=== PATIENT | male | born 1955 | race Caucasian/White ===

== ENCOUNTER → 2020-07-01 11:30 | Outpatient (BNVA) | payer OTHER, SELFPAY | PROVIDERS: PCP Internal Medicine; Referring Provider Internal Medicine; Visit Provider Surgery Vascular Surgery | DX: I73.9 Peripheral vascular disease, unspecified (principal) | CPT/HCPCS: 99203 ==

== ENCOUNTER 2020-07-12 13:20 | Outpatient (REF) | payer OTHER, SELFPAY ==
--- NOTE | 2020-07-12 | US_ITS ---
EXAMINATION: NONINVASIVE ASSESSMENT OF THE ARTERIES OF BOTH LOWER EXTREMITIES WITH PVR EXAM AND BILATERAL LOWER EXTREMITY DUPLEX CLINICAL INFORMATION: Claudication TECHNIQUE: Ankle pulse volume recordings, ankle pressure measurements and ankle brachial indices were obtained of the lower extremity arterial system bilaterally in addition to duplex Doppler techniques with wave form analysis and measurement of velocities in the common femoral, profunda femoral, superficial femoral, popliteal and tibial arteries. The study was performed only at rest. COMPARISON: Previous exam August 2019 FINDINGS: a) AT REST: RIGHT LE. The right ankle-brachial index is: 1.1 2. Right ankle pressure: normal. 3. Right ankle PVR waveform: normal. 4. Right direct duplex Doppler findings: There is calcified plaque seen in the right common femoral artery and right profunda origin. There is increased peak systolic velocity in the right profunda measuring 350 cm/s. This is similar to previous exam.. * Common femoral artery: 133 cm/s, Diastolic flow reversal: Yes * Superficial femoral artery (proximal, mid, distal): 166, 132, and 172 cm/s, Diastolic flow reversal: Yes * Popliteal artery: 116 cm/s, Diastolic flow reversal: Yes * Posterior tibial artery: 77 cm/s, Diastolic flow reversal: Yes LEFT LE. The left ankle-brachial index is: 0.6 2. Left ankle pressure: Decreased 3. Left ankle PVR waveform: Dampened 4. Left direct duplex Doppler findings: There is calcified plaque seen in the left common femoral artery. * Common femoral artery: 70 cm/s, Diastolic flow reversal: No * Superficial femoral artery (proximal, mid, distal): 78, 78 and 63 cm/s, Diastolic flow reversal: No * Popliteal artery: 58 cm/s, Diastolic flow reversal: No * Posterior tibial artery: Ostiomeatal 45 cm/s, Diastolic flow reversal: No KALINA Reference: * >0.97-1.25 = normal - no significant arterial disease * 0.75-0.96 = mild peripheral arterial disease * 0.5-0.74 = moderate peripheral arterial disease * <0.50 = severe peripheral arterial disease IMPRESSION: Right: Minimal calcified plaque in the right common femoral artery. Elevated peak systolic velocity in the right profunda otherwise normal right lower extremity systolic velocities and waveforms. The right KALINA is normal measuring 1.1. Findings are similar to previous exam. Left: Calcified plaque in the left common femoral artery. There are decreased peak systolic velocities and monophasic waveform throughout the left lower extremity again suggestive of left-sided inflow disease. The left KALINA is 0.56 suggestive of moderate obstructive atherosclerotic disease. Findings are similar to previous exam.
== END 2020-07-12 13:21 | disposition home or self-care (01) ==
LOC: HO.US 13:20
PROVIDERS: PCP Internal Medicine; Visit Provider Surgery Vascular Surgery
DX: I70.213 Atherosclerosis of native arteries of extremities with intermittent claudication, bilateral legs (principal)
CPT/HCPCS: 93923; 93925

== ENCOUNTER 2020-07-21 07:36 | Outpatient (REF) | payer OTHER, SELFPAY ==
--- NOTE | 2020-07-21 07:39 | CT_ITS ---
EXAMINATION: CT CHEST SCREENING CLINICAL INFORMATION: Lung cancer screening COMPARISON: Previous chest CT scans most recent July 2019 TECHNIQUE: Multidetector volumetric CT imaging of the chest is performed without contrast using low dose technique. Additional 2D coronal and sagittal reformatted images and axial 3D maximum intensity projection (MIP) images are generated on the CT workstation. This CT examination was performed using dose optimization techniques as appropriate, variously including the following: *Automated exposure control *Adjustment of mA and/or kV according to patient size (this includes techniques or standardized protocols for targeted exams where dose is matched to indication/reason for exam; i.e. extremities or head) *Use of iterative reconstruction technique DLP: 53 mGy-cm FINDINGS: LUNGS: There is evidence of mild emphysema. There is a small 2 mm question calcified left lower lobe nodule axial image 367 series 6 that is stable. There is minimal scarring or chronic subsegmental atelectasis in the anterior segment of the right upper lobe and inferior segment of the lingula that is stable. The lungs are otherwise clear. No endobronchial or endotracheal lesion is seen. MEDIASTINUM: Mild coronary artery calcification. The mediastinum is otherwise normal. PLEURA: There is no pleural effusion. No pleural mass or thickening. AXILLA: No lymphadenopathy. UPPER ABDOMEN: Unremarkable OSSEOUS STRUCTURES: Unremarkable. CT/CT lung screening IMPRESSION: Mild emphysema. Stable small left lower lobe pulmonary nodule or micronodule. Mild coronary artery calcification. ASSESSMENT: Lung-RADS category 2: Benign RECOMMENDATION: Annual low-dose chest CT follow-up recommended.
== END 2020-07-21 07:37 | disposition home or self-care (01) ==
LOC: HO.CT 07:36
PROVIDERS: PCP Internal Medicine; Visit Provider Surgery
DX: Z12.2 Encounter for screening for malignant neoplasm of respiratory organs (principal); Z87.891 Personal history of nicotine dependence
CPT/HCPCS: 71250

== ENCOUNTER → 2020-07-22 09:14 | Outpatient (BNVA) | payer OTHER, SELFPAY | PROVIDERS: PCP Internal Medicine; Visit Provider Surgery Vascular Surgery | DX: I73.9 Peripheral vascular disease, unspecified (principal) | CPT/HCPCS: 99212 ==

== ENCOUNTER 2020-07-28 07:22 | Day surgery (SDC) | payer OTHER, SELFPAY ==
[2020-07-28] VITALS (10 sets, daily range): BP systolic 122–140; BP diastolic 63–74; PULSE 67–82; RESP 17–18; TEMP 36.9; O2SAT 94–98; BMI 22.3
[2020-07-28 08:18] LABS: MANUAL DIFF FLAG NO
[2020-07-28 08:20] LABS: Basophils Absolute Auto 0.1 X10*3/uL (0.0-0.2); Basophils Percent Auto 0.9 % (0-2); Eosinophils Absolute Auto 0.2 X10*3/uL (0.0-0.4); Eosinophils Percent Auto 1.6 % (0-4); Hematocrit 32.9 % (42-52); Hemoglobin 10.9 g/dl (14.0-18.0); Imm Gran Abs Auto 0.04 X10*3/uL (0.00-0.03); Imm Gran Pct Auto 0.3 % (0.0-0.4); Lymphocytes Absolute Auto 2.5 X10*3/uL (1.2-4.9); Lymphocytes Percent Auto 20.2 % (20-40); Mean Corpuscular HGB Conc 33.1 g/dl (31.0-36.0); Mean Corpuscular Hemoglobin 31.2 pg (27.0-33.0); Mean Corpuscular Volume 94.3 fL (80-98); Mean Platelet Volume 9.2 fL (9.4-12.4); Monocytes Absolute Auto 1.2 X10*3/uL (0.1-1.2); Monocytes Percent Auto 10.1 % (2-11); Neutrophils Absolute Auto 8.2 X10*3/uL (2.0-8.3); Neutrophils Percent Auto 66.9 % (45-73); Platelet Count 312 X10*3/uL (160-400); Red Blood Count 3.49 X10*6/uL (4.60-5.80); Red Cell Distribution Width 14.3 % (11.0-16.0); White Blood Count 12.2 X10*3/uL (4.8-10.8)
[2020-07-28 08:28] LABS: Prothrombin Time 11.8 SEC (10.8-13.0)
[2020-07-28 08:30] LABS: Partial Thromboplastin Time 37.7 SEC (24.1-38.0)
[2020-07-28 08:43] LABS: Anion Gap 12 (12-20); Blood Urea Nitrogen 18 mg/dL (9-16); Calcium 8.8 mg/dL (8.4-10.2); Carbon Dioxide 28 mmol/L (22-29); Chloride 105 mmol/L (96-108); Estimated Glomerular Filt Rate > 60; Glucose Random 95 mg/dL (60-115); Potassium 4.6 mmol/l (3.3-5.1); Sodium 140 mmol/L (135-145)
[2020-07-28] MEDS: iohexoL 300 MG/ML 50 ML INFUS..BTL 40 ML IV (10:39)
[2020-07-28] MEDS: Lidocaine HCl 1 % 20 ML VIAL 10 ML SUBCUT (10:40)
[2020-07-28] MEDS: Heparin Sodium,Porcine 5,000 UNIT/ML VIAL 10000 UNIT IVPUSH (10:46)
[2020-07-28] MEDS: 0.9 % Sodium Chloride 1,000 ML 100 ML IVCONT (10:50)
--- NOTE | 2020-07-28 11:38 | OP_ITS ---
SURGEON: Ronald Gonzalez MD INDICATIONS: Darrian is a 65-year-old gentleman with severe activity limiting claudication. He is able to ambulate no further than half a block prior to severe pain. He now presents for endovascular intervention. Risks, benefits, and complications were discussed in detail with the patient. The patient understood and consented. PREOPERATIVE DIAGNOSIS: POSTOPERATIVE DIAGNOSIS: PROCEDURE PERFORMED: ESTIMATED BLOOD LOSS: Minimal. COMPLICATIONS: ANESTHESIA: Local with moderate conscious sedation for a total of 33 minutes performed by me. ASSISTANTS: SPECIMENS: None. PREPROCEDURE DIAGNOSIS: Atherosclerosis with activity limiting claudication, left leg. POSTPROCEDURE DIAGNOSIS: Atherosclerosis with activity limiting claudication, left leg. PROCEDURES PERFORMED: 1. Ultrasound-guided right common femoral access. 2. Aortogram with left lower extremity runoff (second order catheter placement). DESCRIPTION OF PROCEDURE: The patient was brought to the angiography suite, prior to which a time-out was called for patient identification and site verification. Bilateral groins were prepped and draped in standard surgical fashion. Under ultrasound guidance, right common femoral was accessed with micropuncture needle, wire, subsequent 4-Emirati sheath. Flush catheter was brought up to the level of the renals. Aortogram was then undertaken, brought down to the iliacs. Iliacs were subsequently imaged and then brought up and over into the left lower extremity where I could only pass it down to the beginning of the external iliac. I was not able to go any further than that. Runoff was then undertaken. Multiple attempts and multiple orthogonal views were taken through the external iliac. It was a total occlusion, unable to traverse this. At this point, procedure was terminated. Catheter, wire, sheath were removed. Direct pressure was held for 10 minutes. The patient tolerated the procedure well, returned to Recovery with stable vitals. INTERPRETATION OF FILMS: 1. Aortogram demonstrated good caliber aorta with calcification and appropriate renals. 2. Right lower extremity demonstrated good flow through the iliac down to the common femoral, appropriate SFA and profunda. 3. Left lower extremity demonstrated good flow through the common iliac. There was a total occlusion of the external iliac. Reconstituted at the femoral head. Some mild calcification at the common femoral. Appropriate profunda femoris. SFA was patent with good 3-vessel runoff. CONCLUSION: 1. Successful diagnostic angiogram. 2. Total occlusion of left external iliac. The patient will require a femoral to femoral bypass. He will follow up with me and we will schedule electively. DRAINS: None. MD ADAMARIS Gill/FAUZIA / [id number]
== END 2020-07-28 15:20 | disposition home or self-care (01) ==
PROVIDERS: PCP Internal Medicine; Visit Provider Surgery Vascular Surgery
DX: I70.212 Atherosclerosis of native arteries of extremities with intermittent claudication, left leg (principal); Z86.73 Personal history of transient ischemic attack (TIA), and cerebral infarction without residual deficits; Z87.891 Personal history of nicotine dependence; E78.5 Hyperlipidemia, unspecified
CPT/HCPCS: 36245; 36246; 36415; 75630; 75710; 76942; 80048; 85025; 85610; 85730; 99152; 99153; C1760; C1769; C1887; J2250; J3010; Q9967

== ENCOUNTER → 2020-08-24 11:26 | Outpatient (BNVA) | payer OTHER, SELFPAY | PROVIDERS: PCP Internal Medicine; Referring Provider Internal Medicine; Visit Provider Surgery Vascular Surgery | DX: I73.9 Peripheral vascular disease, unspecified (principal); I74.5 Embolism and thrombosis of iliac artery | CPT/HCPCS: 99212 ==

== ENCOUNTER → 2020-08-25 13:05 | Outpatient (BNVA) | payer OTHER, SELFPAY | PROVIDERS: PCP Internal Medicine; Referring Provider Internal Medicine; Visit Provider Internal Medicine Cardiovascular Disease | DX: Z76.89 Persons encountering health services in other specified circumstances (principal) ==

== ENCOUNTER → 2020-08-27 07:58 | Outpatient (REF) | payer OTHER, SELFPAY ==
--- NOTE | 2020-08-27 | NM_ITS ---
Myocardial perfusion study Indication: Preoperative cardiovascular risk stratification prior to major vascular surgery to evaluate for myocardial ischemia Technique: The patient was brought in for a Lexiscan perfusion study on 08/27/2020. Patient performed low-level exercise and was injected 0.4 mg of Lexiscan intravenously. Within a minute of injection, 25 mCi of sestamibi was given intravenously. Images were obtained using the SPECT gamma camera interlaced with the gating device. Images were obtained in supine position. Resting perfusion study was performed on 08/30/2020. Patient was administered 25 mCi of sestamibi intravenously at rest. Images were then obtained in supine position. Images obtained with and without CT attenuation. Total DLP 59 mGy-cm. Images were processed with the software and compared side to side in short axis, horizontal long axis and vertical long axis views. Findings: The stress perfusion study showed non attenuated images show mildly to moderately reduced uptake in the entire inferior wall of the LV myocardium. Remainder of the LV myocardium is normally perfused. Attenuation corrected images show mildly reduced uptake in the distal anterior and apical wall of the myocardium. The gated study shows normal LV systolic function with calculated LVEF of 66%. LV cavity is normal size. The gated study shows normal wall thickening and contraction of all segments except small area of basal inferior wall of the LV myocardium.. Resting study shows nontender images show mildly to moderately reduced uptake in the inferior wall of the myocardium. Attenuation corrected images shows no change in perfusion pattern.. Gating at rest reveals normal systolic wall motion with ejection fraction at 61%. The findings are consistent with no clear reversible defect suggestive of ischemia. There is mild hypokinesis of the basal inferior wall but attenuation corrected images normalized.. NM/NM doyle perf SPECT rest & str Impression: 1. Myocardial perfusion imaging study shows possible nontransmural infarct of the basal inferior wall without ischemia. 2. Gated LVEF is 66% 3. Transient ischemic dilatation normal in size EKG is nondiagnostic for ischemia
--- NOTE | 2020-08-27 08:02 | CA_ITS ---
Acquisition Time: 2020-08-27 08:15:45 Total Exercise Time: 00:02:00 Test Indications: Pre-Op Evaluation Medications: ASA ATORVASTATIN CITOSTAZOL TELMISARTAN/HCTZ IBUPROFEN Protocol: LEXISCAN Max HR: 106 BPM 67% of Pred: 156 BPM Max BP: 134/068 mmHG Max Work Load: 1.0 METS Pharmacological stress test using Lexiscan while sitting and kicking his feet. Pt tolerated well, denies any anginal sx. EKG without any arrhythmias, non-diagnostic for ischemia. Nuclear images to follow. Normotensive response to test. Test reviewed with Dr. Beauchamp. Referred By: Carmine Beauchamp Overread By: Aleksandr Gandara
== END ==
LOC: HO.CARD 07:58
PROVIDERS: PCP Internal Medicine; Visit Provider Internal Medicine Cardiovascular Disease
DX: Z01.810 Encounter for preprocedural cardiovascular examination (principal); I73.9 Peripheral vascular disease, unspecified
CPT/HCPCS: 78452; 93017; A9500; J0280; J2785

== ENCOUNTER → 2020-08-30 07:40 | Outpatient (REF) | payer OTHER, SELFPAY ==
--- NOTE | 2020-08-30 07:45 | CA_ITS ---
Transthoracic Echocardiogram Patient (Last, First, Middle): Darrian De Jesus E Gender: Male Date of : 1955 Age: 65 Procedure Date: 08/30/2020 Procedure Type: Transthoracic Echocardiogram Location: OP Height: 180.34 cm Weight: 72.58 kg BSA: 1.92 m2 Heart Rate: bpm BP: 122 / 60 mmHg Fashion Merchandiser: RAFAT Referring MD: Carmine Beauchamp MD Symptoms: I73.9, Z01.810 - preprocedural cardiovascular examination Study Quality: Good ECG Rhythm: Sinus Conclusions: - The left ventricular systolic function is normal. The visually estimated ejection fraction is between 55-60%. - The basal inferior segment is hypokinetic. - There is mild dilatation of the sinuses of Valsalva measuring 4.10 cm and mild dilatation of the ascending aorta measuring 3.60 cm. Findings Left Ventricle Normal left ventricular cavity size. There is mildly increased left ventricular wall thickness. The left ventricular systolic function is normal. The visually estimated ejection fraction is between 55-60%. There is no evidence of regional wall motion abnormalities. E/E prime ratio is <8, consistent with normal filling pressures. Evidence suggests grade I (mild) diastolic dysfunction. Wall Motion Rest Echo Findings The basal inferior segment is hypokinetic. Right Ventricle Normal right ventricular cavity size and systolic function. Atria The left atrium is normal in size. The right atrium is normal in size. Aortic Valve There is a normal trileaflet aortic valve. There is no aortic valve stenosis. There is no aortic valve regurgitation. Mitral Valve The mitral valve appears normal. There is trace mitral valve regurgitation. There is no mitral valve stenosis. Pulmonic Valve The pulmonic valve was not well visualized. Tricuspid Valve Normal tricuspid valve structure. There is mild tricuspid valve regurgitation. The pulmonary artery systolic pressure is normal. Great Vessels There is mild dilatation of the sinuses of Valsalva measuring 4.10 cm and mild dilatation of the ascending aorta measuring 3.60 cm. Venous The inferior vena cava is normal in size and collapses greater than 50% with inspiration. Pericardium/Pleural There is no evidence of pericardial effusion. Prior Study Comparison Changes noted compared to prior study dated: 03/28/2018. Slight increase in aortic size. Wall motion seems similar to prior on image review. Measurements 2D Linear Measurements IVSd: 1.14 0.6-0.9/0.6-1.0 cm LVIDd: 4.15 3.9-5.3/4.2-5.9 cm LVIDd Index: 2.16 2.4-3.2/2.2-3.1 cm/m2 LVIDs: 2.77 2.0-3.6 cm LVPWd: 1.16 0.7-1.1 cm Ao Root: 4.10 2.1-3.5 cm LA Diam: 3.40 2.7-3.8/3.0-4.0 cm LAIDs Index: 1.77 1.5-2.3 cm/m2 LV Mass: 204.74 67-162/88-224 g LV Mass Index: 106.63 43-95/49-115 g/m2 LVOT Diam: 2.40 3.0+(-)1.3 cm 2D Systolic Function EF 4C: 47.50 >55% EF 2C: 55.80 >55% EF BiP: 52.20 >55% Mitral Valve MV Pk E: 0.44 MV PK A: 0.90 MV Decel Time: 327.00 E/A: 0.50 E'Lateral: 8.61 E'Medial: 5.80 E/E' Med: 7.50 E/E' Lat: 5.10 PHT: 96.00 MVA PHT: 2.29 Decel [place]: 1.33 Aortic Valve AoV Pk Kike: 1.19 AoV Mn Kike: 0.83 AoV VTI: 0.27 AoV Pk Grad: 6.00 Aov Mn Grad: 3.00 PAMELA Cont.VTI: 3.50 LVOT LVOT Pk Kike: 1.08 LVOT Mn Kike: 0.64 LVOT VTI: 0.21 LVOT Pk Grad: 5.00 LVOT Mn Grad: 2.00 LVOT Diam: 2.40 LVOT Area: 4.52 Diastolic Function MV Pk E: 0.44 MV Pk A: 0.90 E/A: 0.50 E'Medial: 5.80 E/E' Med: 7.50 E' Laterial: 8.61 E/E' Lat: 5.10 Tricuspid Valve TR Pk Kike: 2.23 TR Pk Grad: 20.00 RA Press: 3.00 RVSP: 23.00 Great Vessels Aorta Ao Root-2D: 4.10 2.0-3.7 cm Sinus of Valsalva: 4.10 2.0-3.5 cm Ao Asc: 3.60 2.1-3.4 cm Pulmonary Valve PV Pk Kike: 0.73 Peak PV Grad: 2.00 Updated in Other Vendor System with Status of Final Donald Stoll MD electronically signed on 08/30/2020 10:59:18 AM with status of Final
== END ==
LOC: HO.CARD 07:40
PROVIDERS: Visit Provider Internal Medicine Cardiovascular Disease
DX: Z20.810 Contact with and (suspected) exposure to anthrax (principal); I73.9 Peripheral vascular disease, unspecified; E78.5 Hyperlipidemia, unspecified
CPT/HCPCS: 93306; 99202

== ENCOUNTER → 2020-09-01 12:23 | Outpatient (BNVA) | payer OTHER, SELFPAY | PROVIDERS: PCP Internal Medicine; Referring Provider Internal Medicine; Visit Provider Internal Medicine Cardiovascular Disease | DX: Z76.89 Persons encountering health services in other specified circumstances (principal) ==

== ENCOUNTER 2020-09-06 06:16 | Inpatient (IN) | payer MEDICAID, SELFPAY ==
[2020-08-30 09:59] VITALS: BP 143/81; PULSE 76; RESP 20; O2SAT 98; BMI 22.1
[2020-08-30 11:50] LABS: Hematocrit 38.8 % (42-52); Hemoglobin 12.8 g/dl (14.0-18.0); Mean Corpuscular Hemoglobin 30.5 pg (27.0-33.0); Mean Corpuscular Volume 92.6 fL (80-98); Mean Platelet Volume 9.7 fL (9.4-12.4); Platelet Count 321 X10*3/uL (160-400); Red Blood Count 4.19 X10*6/uL (4.60-5.80); Red Cell Distribution Width 14.2 % (11.0-16.0); White Blood Count 17.6 X10*3/uL (4.8-10.8)
[2020-08-30 11:58] LABS: Partial Thromboplastin Time 34.7 SEC (24.1-38.0)
[2020-08-30 12:08] LABS: Anion Gap 16 (12-20); Blood Urea Nitrogen 17 mg/dL (9-16); Carbon Dioxide 25 mmol/L (22-29); Chloride 102 mmol/L (96-108); Creatinine Clr Calc Pharmacy 66.1; Estimated Glomerular Filt Rate > 60; Glucose Random 94 mg/dL (60-115); Potassium 4.3 mmol/l (3.3-5.1); Sodium 139 mmol/L (135-145)
[2020-08-30 12:22] LABS: Calcium 10.6 mg/dL (8.4-10.2)
--- NOTE | 2020-09-02 14:04 | P.CONAN_ITS ---
Documented by User: Melvina Quinones 09/02/20 14:17 HPI - Anesthesia Eval Consult details Narrative: 65yo M for Femoral Femoral Bypass Graft Seen by Dr Wagner in PAT. Cardiology optimized. Low to intermed risk. [facility] Past Medical History Medical History CVA (cerebral vascular accident) (~03/2018) History of arteriography HTN (hypertension) Hyperlipidemia PVD (peripheral vascular disease) Family History Family History Father Cancer Mother CVD (cardiovascular disease) Obese Sister No problems noted. Son No problems noted. Son No problems noted. Surgical History Surgical History Colonoscopy planned (~2009) H/O colonoscopy Social History Social History Are you a primary health care assistant to a significant other at home: No Do you presently have visiting nurse or other home services: No Alcohol intake: never Smoking Status: Former smoker Tobacco Type: Cigarette Cigarettes Per Day: 10 Years Smoked: 30 Smoked in Last 30 Days: No Smoking Quit Date: 2009 Use of substances other than those prescribed or required for medical reasons: Yes Substance Use Type: Marijuana Substance Use Frequency: Occasionally Have you been hit, kicked, punched, or otherwise hurt by someone within the past year? If so, by whom?: No Advance Directives Information Provided: No Recently lost weight without trying: No Meds Allergies Allergy/AdvReac Type Severity Reaction Status Date / Time bee pollen [Bee Stings] Allergy Severe Anaphylaxis Verified 09/02/20 07:00 Home Medications Medication Instructions Recorded Confirmed Type aspirin 81 mg tablet,delayed 81 mg PO DAILY 07/01/20 09/06/20 History release atorvastatin 20 mg tablet 20 mg PO BEDTIME 07/01/20 09/01/20 History cilostazol 100 mg tablet 100 mg PO BID 07/01/20 09/06/20 History ibuprofen 800 mg tablet 800 mg PO TID PRN 07/01/20 09/01/20 History telmisartan 40 1 tab PO BEDTIME 07/01/20 09/01/20 History mg-hydrochlorothiazide 12.5 mg tablet metoprolol succinate 50 mg PO DAILY 09/06/20 09/06/20 History Exam Exam Date and Time: September 02, 2020 1404 Height,Weight and Vital Signs: Height 5 ft 11 in Weight 72.1 kg Last Vital Signs Pulse 76 08/30/20 09:59 Resp 20 08/30/20 09:59 BP 143/81 H 08/30/20 09:59 Pulse Ox 98 08/30/20 09:59 Pertinent Lab Results Pertinent Lab Results: Laboratory Tests 08/30/20 08/30/20 08/30/20 10:57 11:05 11:05 WBC 17.6 H RBC 4.19 L D Hgb 12.8 L Hct 38.8 L MCV 92.6 MCH 30.5 MCHC 33.0 RDW 14.2 Plt Count 321 MPV 9.7 Absolute Nucleated RBC 0.000 Nucleated RBC % (auto) 0.0 PT 12.0 INR 1.0 APTT 34.7 Sodium Potassium Chloride Carbon Dioxide Anion Gap BUN Creatinine Estim Creat Clear Calc Estimated GFR Random Glucose Calcium Blood Type A Negative Antibody Screen NEGATIVE 08/30/20 11:05 WBC RBC Hgb Hct MCV MCH MCHC RDW Plt Count MPV Absolute Nucleated RBC Nucleated RBC % (auto) PT INR APTT Sodium 139 Potassium 4.3 Chloride 102 Carbon Dioxide 25 Anion Gap 16 BUN 17 H Creatinine 1.15 Estim Creat Clear Calc 66.1 Estimated GFR > 60 Random Glucose 94 Calcium 10.6 H D Blood Type Antibody Screen Narrative Narrative: EKG 07/28/20: NSR Lexiscan stress 08/2020: Pt tolerated well, denies any anginal sx. EKG without any arrhythmias, non-diagnostic for ischemia. Nuclear images to follow. Normotensive response to test. MIBI 08/2020: 1. Myocardial perfusion imaging study shows possible nontransmural infarct of the basal inferior wall without ischemia. 2. Gated LVEF is 66% 3. Transient ischemic dilatation normal in size ECHO 08/2020: - The left ventricular systolic function is normal. The visually estimated ejection fraction is between 55-60%. - The basal inferior segment is hypokinetic. - There is mild dilatation of the sinuses of Valsalva measuring 4.10 cm and mild dilatation of the ascending aorta measuring 3.60 cm. Assessment and Plan Assessment Anesthesia Assessment: Chart Reviewed Documented by User: Veto Wagner 09/06/20 07:59 [facility] Past Medical History Medical History CVA (cerebral vascular accident) (~03/2018) History of arteriography HTN (hypertension) Hyperlipidemia PVD (peripheral vascular disease) Family History Family History Father Cancer Mother CVD (cardiovascular disease) Obese Sister No problems noted. Son No problems noted. Son No problems noted. Surgical History Surgical History Colonoscopy planned (~2009) H/O colonoscopy Social History Social History Are you a primary health care assistant to a significant other at home: No Do you presently have visiting nurse or other home services: No Alcohol intake: never Smoking Status: Former smoker Tobacco Type: Cigarette Cigarettes Per Day: 10 Years Smoked: 30 Smoked in Last 30 Days: No Smoking Quit Date: 2009 Use of substances other than those prescribed or required for medical reasons: Yes Substance Use Type: Marijuana Substance Use Frequency: Occasionally Have you been hit, kicked, punched, or otherwise hurt by someone within the past year? If so, by whom?: No Advance Directives Information Provided: No Recently lost weight without trying: No Meds Allergies Allergy/AdvReac Type Severity Reaction Status Date / Time bee pollen [Bee Stings] Allergy Severe Anaphylaxis Verified 09/02/20 07:00 Home Medications Medication Instructions Recorded Confirmed Type aspirin 81 mg tablet,delayed 81 mg PO DAILY 07/01/20 09/06/20 History release atorvastatin 20 mg tablet 20 mg PO BEDTIME 07/01/20 09/01/20 History cilostazol 100 mg tablet 100 mg PO BID 07/01/20 09/06/20 History ibuprofen 800 mg tablet 800 mg PO TID PRN 07/01/20 09/01/20 History telmisartan 40 1 tab PO BEDTIME 07/01/20 09/01/20 History mg-hydrochlorothiazide 12.5 mg tablet metoprolol succinate 50 mg PO DAILY 09/06/20 09/06/20 History Exam Airway Mallampati Class: II TM Dist: >3cm Neck ROM: Full Loose/Missing/Broken Teeth: Yes (patient has 1 upper tooth in back and a few lower teeth. extremely poor dentition) Heart: [id number] Lungs: cta b/l Assessment and Plan Assessment Anesthesia Assessment: Anesthesia Plan Discussed, PAT Visit and Chart Reviewed Final Anesthetic Review NPO: Yes ASA Class: III Final Preanesthetic Review: No Changes in Pt Med Stat, Meds/Allgs Chart Reviewed, Consent Obtained/Reviewed and Anes Risks/Benef Reviewed Patient Risk: Intermediate Procedure Risk: Intermediate Assessment/Block/Sedation in SS: Assess/Block/Sedation-SS Anesthetic Plan Anesthetic Plan: GA Disposition: Standard PACU
[2020-09-06] VITALS (22 sets, daily range): BP systolic 96–167; BP diastolic 43–65; PULSE 65–97; RESP 12–20; TEMP 36.1–37.2; O2SAT 93–99
[2020-09-06] MEDS: ceFAZolin Sodium/Dextrose,Iso 2 GM/50 ML PIGGYBACK IV ×2 (06:47→12:56)
[2020-09-06] MEDS: Lactated Ringers 1,000 ML 100 ML IVCONT (06:47)
[2020-09-06 06:50] LABS: COVID-19 Test Negative (Negative)
[2020-09-06 06:52] LABS: INTERNATIONAL NORM RATIO 1.1 (0.9-1.1); Prothrombin Time 13.4 SEC (10.8-13.0)
[2020-09-06 06:55] LABS: Partial Thromboplastin Time 31.5 SEC (24.1-38.0)
[2020-09-06 07:09] LABS: Anion Gap 17 (12-20); Blood Urea Nitrogen 28 mg/dL (9-16); Calcium 9.3 mg/dL (8.4-10.2); Carbon Dioxide 23 mmol/L (22-29); Chloride 100 mmol/L (96-108); Estimated Glomerular Filt Rate 47; Glucose Random 111 mg/dL (60-115); Potassium 3.9 mmol/l (3.3-5.1); Sodium 136 mmol/L (135-145)
[2020-09-06 07:14] LABS: Hematocrit 35.2 % (42-52); Hemoglobin 11.8 g/dl (14.0-18.0); Mean Corpuscular HGB Conc 33.5 g/dl (31.0-36.0); Mean Corpuscular Hemoglobin 30.4 pg (27.0-33.0); Mean Corpuscular Volume 90.7 fL (80-98); Platelet Count 308 X10*3/uL (160-400); Red Blood Count 3.88 X10*6/uL (4.60-5.80); White Blood Count 15.1 X10*3/uL (4.8-10.8)
[2020-09-06] MEDS: Sodium Chloride 0.45 % 1,000 ML 80 ML IVCONT (12:56)
--- NOTE | 2020-09-06 15:38 | P.HPCC_ITS ---
History of Present Illness Date of Service: 09/06/20 Chief Complaint: Status post fem-fem bypass 65-year-old gentleman with underlying history of hypertension, hyperlipidemia, PVD, CVA in 2018 admitted on 09/06/2020 after an elective fem-fem bypass for left lower extremity claudication. Now being monitored in intensive care unit in the postop period. Review of Systems Constitutional: Constitutional: Denies fatigue, Denies headache(s) and Denies malaise Eyes: Eyes: Denies change in vision and Denies loss of vision ENT: Denies headache(s) Cardiovascular: Cardiovascular: Denies chest pain, Reports claudication and Denies dyspnea Respiratory: Respiratory: Denies dyspnea and Denies wheezing Gastrointestinal: Gastrointestinal: Denies constipation Genitourinary: Genitourinary: Denies dysuria and Denies urinary hesitancy Musculoskeletal: Musculoskeletal: Denies myalgias and Denies muscle cramps Neurologic: Denies headache(s), Denies loss of vision and Denies memory loss Psychiatric: Psychiatric: Denies memory loss Endocrine: Endocrine: Denies fatigue Allergic/Immunologic: Allergic/Immunologic: Denies wheezing PMFSH Past Medical History Medical History CVA (cerebral vascular accident) (~03/2018) History of arteriography HTN (hypertension) Hyperlipidemia PVD (peripheral vascular disease) Family History Family History Father Cancer Mother CVD (cardiovascular disease) Obese Sister No problems noted. Son No problems noted. Son No problems noted. Surgical History Surgical History Colonoscopy planned (~2009) H/O colonoscopy Social History Social History Household Members: Spouse and Children Housing: House Are you a primary clinical care coordinator to a significant other at home: No Do you presently have visiting nurse or other home services: No Alcohol intake: never Smoking Status: Former smoker Tobacco Type: Cigarette Cigarettes Per Day: 10 Years Smoked: 30 Smoked in Last 30 Days: No Smoking Quit Date: 2009 Use of substances other than those prescribed or required for medical reasons: Yes Substance Use Type: Marijuana Substance Use Frequency: Occasionally Have you been hit, kicked, punched, or otherwise hurt by someone within the past year? If so, by whom?: No Do you feel safe in your current relationship?: Yes Is there a partner from a previous relationship who is making you feel unsafe no w?: No Are you made to feel afraid or neglected: No Advance Directives Information Provided: No Do you have thoughts of harming others: None Do you have a plan to hurt others: No Plan Recently lost weight without trying: No Meds Allergies Allergy/AdvReac Type Severity Reaction Status Date / Time bee pollen [Bee Stings] Allergy Severe Anaphylaxis Verified 09/02/20 07:00 Home Medications Medication Instructions Recorded Confirmed Type aspirin 81 mg tablet,delayed 81 mg PO DAILY 07/01/20 09/06/20 History release atorvastatin 20 mg tablet 20 mg PO BEDTIME 07/01/20 09/01/20 History cilostazol 100 mg tablet 100 mg PO BID 07/01/20 09/06/20 History ibuprofen 800 mg tablet 800 mg PO TID PRN 07/01/20 09/01/20 History telmisartan 40 1 tab PO BEDTIME 07/01/20 09/01/20 History mg-hydrochlorothiazide 12.5 mg tablet Physical Exam Vital Signs: Vital Signs: Last Vital Signs Temp 97.9 F 09/06/20 12:00 Pulse 96 09/06/20 15:00 Resp 12 09/06/20 15:00 BP 160/54 H 09/06/20 15:00 Pulse Ox 97 09/06/20 15:00 Body Mass Index 22.1 Const: General: no acute distress, alert and awake Eyes: Sclerae: sclerae normal EOM: EOMs intact bilaterally Neck: Neck: Yes no lymphadenopathy, Yes trachea midline and Yes supple Resp: Effort & Inspection: normal respiratory effort and no respiratory distress Auscultation: clear to auscultation bilaterally Cardio: Rate: regular rate Rhythm: regular rhythm Heart sounds: no gallops, no murmurs and no rubs GI: Palpation (GI): Soft to palpation and Other GI palpation findings present ( Nontender) Auscultation: normal bowel sounds Extrem: General: Yes no pedal edema, No clubbing, No cyanosis and Yes other (Bilateral femoral incision sites with surgical dressing without hematoma) Results Labs CBC and Chem 7: 09/06/20 06:38 09/06/20 06:38 Labs: Laboratory Results - last 24 hr 09/06/20 09/06/20 09/06/20 06:20 06:38 06:38 MCV 90.7 MCH 30.4 MCHC 33.5 RDW 14.0 Plt Count 308 MPV 10.0 Absolute Nucleated RBC 0.000 Nucleated RBC % (auto) 0.0 PT 13.4 H INR 1.1 APTT 31.5 Anion Gap Estim Creat Clear Calc Estimated GFR Random Glucose Calcium COVID-19 (JULISA) Negative COVID-19 Clin Com See Note 09/06/20 06:38 MCV MCH MCHC RDW Plt Count MPV Absolute Nucleated RBC Nucleated RBC % (auto) PT INR APTT Anion Gap 17 Estim Creat Clear Calc 51.0 Estimated GFR 47 Random Glucose 111 Calcium 9.3 D COVID-19 (JULISA) COVID-19 Clin Com Assessment and Plan (1) PAD (peripheral artery disease): Status: Acute Assessment: 65-year-old gentleman status post elective fem-fem bypass being monitored in ICU postop. Plan: Neuro: No acute issues. Cardiac: Status post elective fem-fem bypass on 09/06/2020. Monitored in ICU in the immediate postsurgical.. Vascular surgery service care appreciated. Pulmonary: No acute issues. Renal: No acute issues. Endo: No acute issues. GI: No acute issues. ID: No acute issues Heme/Onc: Monitor hemoglobin with transfusion threshold of 8. Psych: No acute issues. Miscellaneous: No acute issues. Prophylaxis: Per vascular surgery Diet: Regular (2) HTN (hypertension): Status: Acute (3) Hyperlipidemia: Status: Acute
[2020-09-06] MEDS: oxyCODONE HCl Immed Release 5 MG TABLET PO (18:33)
[2020-09-06] MEDS: 0.9 % Sodium Chloride Flush 3 ML SYRINGE IVFLUSH (18:34)
--- NOTE | 2020-09-06 18:53 | PC.NURSE ---
Pt arrived to icu at 1200 from PACU s/p bilat fem bipass graft. At time of arrival neuros at baseline with hx of CVA, left facial droop and numbness to left side of his body including extremities and face. PT alert and oriented x3. Pain 2/10 at the time of arrival. Dressings intact and dry bilaterally. Bilat pedal and posterior tibial pulses equal and palpable at 3+ bilaterally. PT now experiencing 5/10 pain. He was medicated with PRN oxycodone. Dressings have some slight staining bilaterally which was circled and will continue to monitor site. Pedal and posterior tibial pulses remain palpable bilaterally 3+. VSS a-line to left arm reading about 20mg/hg higher than cuff pressure to the right arm. SBP to a-line running about 150 up to 160. Per keep SBP <170.
[2020-09-06] MEDS: Docusate Sodium 100 MG CAPSULE PO (21:38)
[2020-09-06] MEDS: traZODone HCL 25 MG HALFTAB PO (21:38)
[2020-09-06] MEDS: Atorvastatin Calcium 20 MG TABLET PO (21:38)
[2020-09-06] MEDS: Valsartan 80 MG TABLET PO (21:44)
[2020-09-06] MEDS: hydroCHLOROthiazide 12.5 MG TABLET PO (21:45)
--- NOTE | 2020-09-06 22:14 | OP_ITS ---
SURGEON: Ronald Gonzalez MD INDICATIONS: Darrian is a 65-year-old gentleman with history of activity-limiting claudication. He was unable to carry out his daily activities. He had undergone endovascular intervention with a total occlusion of iliac and common femoral on the left side. He now presents for operative intervention of a femoral to femoral bypass. Risks, benefits, and complications were discussed in detail with the patient. The patient understood and consented. PREOPERATIVE DIAGNOSIS: POSTOPERATIVE DIAGNOSIS: PROCEDURE PERFORMED: 1. Femoral to femoral bypass (right to left). 2. Right femoral endarterectomy. 3. Left common femoral endarterectomy. 4. Left SFA endarterectomy. 5. Thrombectomy of left profunda femoris. ESTIMATED BLOOD LOSS: 300 mL. COMPLICATIONS: ANESTHESIA: General. ASSISTANTS: Dr. Figueroa. SPECIMENS: One. PREPROCEDURE DIAGNOSIS: Atherosclerosis with activity-limiting claudication. POSTPROCEDURE DIAGNOSIS: Atherosclerosis with activity-limiting claudication. DESCRIPTION OF PROCEDURE: The patient was brought to the operating room, prior to which a time-out was called for patient identification and site verification. Abdomen and bilateral groins were prepped and draped in standard surgical fashion. First, left femoral cutdown was undertaken in a longitudinal manner from the inguinal ligament down to the common femoral. We were able to identify the common femoral, isolated this with a silastic loop along with the profunda and SFA, which were individually isolated out. We then did a cutdown on the right side in similar fashion and identified the common femoral profunda and SFA, all isolated out with the silastic loops. We created a tunnel from the left to right using an aortic clamp in the subcutaneous tissue and we brought through a piece of umbilical tape to hold position. At this point, 5000 units of systemic heparin was administered. We clamped down on the left side. An arteriotomy was then created. We performed an endarterectomy of the common femoral. We had to go down onto the SFA, and the proximal portion of the SFA on the left side had to be endarterectomized as well. We did a remote endarterectomy of the left profunda femoris. We did not achieve good flow. A #3 Adilson was used, and we were able to clear out some debris and clot and at this point, we achieved excellent flow. We clamped this side down, placed moist gauze. We then turned our attention to the right side. We opened in a similar fashion, we clamped down on the common femoral profunda and SFA. We did an arteriotomy, and the common femoral had significant atherosclerotic disease. This was endarterectomized and sent off as specimen as well. We trimmed a Philipp Propaten 8 x 50 graft, this was trimmed to the appropriate size. We tunneled this through and we brought it over to the right side. Prior to tunneling, it was anastomosed using a Philipp CV6 suture. We flushed through the graft. Several interrupted sutures had to be placed for hemostasis, which were of 6-0 Prolene and 7-0 Prolene tie. We went over to the contralateral side, which was the left side and once this was tunneled too in a similar fashion, we anastomosed this with a Philipp CV6 suture. Once this was all accomplished, prior to closure, it was all flushed through. We obtained an excellent result with hemostasis. The graft had a palpable pulse throughout it and it had good flow through the graft. Once this was all accomplished, adequate hemostasis was achieved with SNOW after 5 minutes, we appreciated no significant bleeding. We then placed Tisseel sealant and then at this point, we reapproximated deep layer with 2-0 Vicryl, superficial layer with 3-0 Vicryl and finally skin with skin clips. Sterile dressing was applied at the end of the case. At the end of the case, sponge, needle and instrument counts were correct. The patient had bilateral palpable DP pulses and was returned to recovery with stable vitals. DRAINS: None. MD ADAMARIS Gill/FAUZIA / [id number] STEVEN
[2020-09-07] VITALS (15 sets, daily range): BP systolic 96–152; BP diastolic 44–66; PULSE 62–78; RESP 13–20; TEMP 36.3–36.7; O2SAT 78–98
[2020-09-07] MEDS: Sodium Chloride 0.45 % 1,000 ML 80 ML IVCONT
[2020-09-07] MEDS: oxyCODONE HCl Immed Release 5 MG TABLET PO ×4 (00:11→20:22)
[2020-09-07] MEDS: Acetaminophen 325 MG TABLET 650 MG PO ×3 (00:12→16:13)
[2020-09-07 05:58] LABS: Basophils Percent Auto 0.2 % (0-2); Eosinophils Percent Auto 0.1 % (0-4); Hematocrit 26.4 % (42-52); Imm Gran Abs Auto 0.07 X10*3/uL (0.00-0.03); Imm Gran Pct Auto 0.4 % (0.0-0.4); Lymphocytes Absolute Auto 2.9 X10*3/uL (1.2-4.9); Lymphocytes Percent Auto 17.2 % (20-40); MANUAL DIFF FLAG SCAN; Mean Corpuscular HGB Conc 34.1 g/dl (31.0-36.0); Mean Corpuscular Hemoglobin 30.6 pg (27.0-33.0); Mean Corpuscular Volume 89.8 fL (80-98); Mean Platelet Volume 10.1 fL (9.4-12.4); Monocytes Absolute Auto 1.6 X10*3/uL (0.1-1.2); Monocytes Percent Auto 9.7 % (2-11); Neutrophils Absolute Auto 12.2 X10*3/uL (2.0-8.3); Neutrophils Percent Auto 72.4 % (45-73); Platelet Count 243 X10*3/uL (160-400); Red Blood Count 2.94 X10*6/uL (4.60-5.80); Red Cell Distribution Width 13.8 % (11.0-16.0); SCAN SMEAR FLAG 1; White Blood Count 16.8 X10*3/uL (4.8-10.8)
[2020-09-07 06:03] LABS: INTERNATIONAL NORM RATIO 1.1 (0.9-1.1); Prothrombin Time 13.1 SEC (10.8-13.0)
[2020-09-07 06:12] LABS: Albumin Level 3.6 g/dL (3.5-5.0)
[2020-09-07 07:24] LABS: SLIDE REVIEW VERIFIED
[2020-09-07] MEDS: Docusate Sodium 100 MG CAPSULE PO (07:59)
[2020-09-07] MEDS: 0.9 % Sodium Chloride Flush 3 ML SYRINGE IVFLUSH ×4 (07:59→20:23)
[2020-09-07] MEDS: Aspirin Enteric Coated 81 MG TABLET.DR PO (07:59)
--- NOTE | 2020-09-07 08:37 | HO.POSTANES ---
Post Anesthesia Evaluation Post Anesthesia Evaluation Vital Signs: Vital Signs Temp Pulse Resp BP Pulse Ox 09/07/20 07:59 71 15 152/52 H 94 09/07/20 07:00 73 15 139/48 L 96 09/07/20 06:00 70 16 122/58 L 97 09/07/20 05:00 72 16 09/07/20 04:00 97.4 F 68 16 112/48 L 96 09/07/20 03:00 62 16 125/47 L 96 09/07/20 02:00 66 16 118/45 L 96 09/07/20 00:54 65 16 106/44 L 94 09/07/20 00:00 97.6 F 66 16 141/53 H 97 09/06/20 23:00 68 16 111/55 L 95 09/06/20 22:00 65 15 128/49 L 93 09/06/20 21:00 73 18 124/51 L 93 Anesthesia: General Endotracheal-GETA (with A-line for monitoring of beat to beat variability) Mental Status: Awake Pain Control: Satisfactory Nausea/Vomiting: None Hydration: Adequate Anesthesia-Related Issues: No Anes. Related Issues
[2020-09-07 09:49] LABS: Anion Gap 12 (12-20); Blood Urea Nitrogen 23 mg/dL (9-16); Calcium 8.1 mg/dL (8.4-10.2); Carbon Dioxide 26 mmol/L (22-29); Chloride 102 mmol/L (96-108); Creatinine Clr Calc Pharmacy 71.7; Estimated Glomerular Filt Rate > 60; Glucose Random 96 mg/dL (60-115); Potassium 3.2 mmol/l (3.3-5.1); Sodium 137 mmol/L (135-145)
--- NOTE | 2020-09-07 09:51 | MHC.CM.PN ---
Met with pt in ICU. Will be transferred to [facility] [place]. Very pleasant and oriented man. Feels well. Recovering from txkfqaj-ict-bal bypass. CM assessment completed. Lives with and son. Does not use any medical equipment. 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 HCP Ramiro chandra [facility]- [phone]. Plans d/c tomorrow without services.
[2020-09-07] MEDS: Morphine Sulfate 2 MG/ML CARTRIDGE IVPUSH (12:16)
--- NOTE | 2020-09-07 13:18 | P.PNVS_ITS ---
Subjective Subjective Date of Service: 09/07/20 Patient reports: no new complaints and feels better Interval history: Postop day 1 status post fem-fem bypass. No issues overnight. Pain well controlled. He was transferred up to floor. Hemodynamically stable. States feet feel significantly better. Physical Exam Vital Signs: Vital Signs: Last Vital Signs Temp 98.1 F 09/07/20 12:00 Pulse 74 09/07/20 12:00 Resp 16 09/07/20 12:16 BP 120/63 09/07/20 12:00 Pulse Ox 96 09/07/20 12:00 Body Mass Index 22.1 Const: General: cooperative, healthy appearing and no acute distress Orientation/consciousness: oriented to person, oriented to place and oriented to time HENMT: Head: Yes normal to inspection Neck: Carotids: no bruits Chest: Chest palpation & inspection: normal inspection of the chest Resp: Effort & Inspection: normal respiratory effort and able to speak in complete sentences Auscultation: clear to auscultation bilaterally Cardio: Rate: regular rate Heart sounds: S1 normal heart sound present and S2 normal heart sound present Peripheral pulses: dorsalis pedis present (Bilateral palpable DP pulses) GI: Inspection: Yes normal to inspection Skin: Other: Incision dressings only mild staining. No hematoma appreciated. General skin exam: no rashes or lesions noted Wounds: no wounds Neuro: General: oriented to person, oriented to place, oriented to time and CN's II-XI intact bilaterally Extrem: General: Yes normal to inspection, Yes full ROM and Yes no clubbing, cyanosis or edema Psych: Appearance: grossly normal and well kempt Speech and movement: Normal speech and movement present Affect: normal affect Progress Note: A&P Assessment and plan (1) PAD (peripheral artery disease): Status: Acute Assessment and Plan: Status post fem-fem bypass. Doing extremely well. A-line removal, Lopez removal, advanced to regular diet. Stable for transfer to floor. Thank you for the groover and turner assistance in this patient's care. The patient had an opportunity to ask questions regarding the treatment plan. All questions were answered. Imaging studies, laboratory studies and physical exam results were discussed and reviewed in detail. No major barriers to understanding were identified. The patient expressed understanding and agreement with the above treatment plan. The patient is aware they should contact our office by phone for worsening of the current condition or the appearance of new symptoms. Thank you for allowing me to participate in the vascular care of this patient. If you have any questions or concerns regarding the treatment for the above condition please do not hesitate to contact me. The office telephone contact is [phone]. This note is constructed using voice recognition software. While every effort has been made to ensure accuracy, pharmacy services director errors may have been included. Thank you for allowing me to participate in the care of your patient. Yours sincerely, Ronald Gonzalez MD, FACS, R.P.V.I. Fall Risk Details Current Medications: Current Medications Generic Name Dose Route Start Last Admin Trade Name Freq PRN Reason Stop Dose Admin Acetaminophen 650 mg 09/06/20 10:37 09/07/20 07:58 Acetaminophen 325 Mg Tablet PO 650 mg Q6H PRN Administration Pain, Mild (Pain Scale 1-3) Aspirin 81 mg 09/07/20 09:00 09/07/20 07:59 Aspirin Enteric Coated 81 Mg Tablet. PO 81 mg DAILY DAVID Administration Atorvastatin Calcium 20 mg 09/06/20 21:00 09/06/20 21:38 Atorvastatin Calcium 20 Mg Tablet PO 20 mg BEDTIME DAVID Administration Docusate Sodium 100 mg 09/06/20 21:00 09/07/20 07:59 Docusate Sodium 100 Mg Capsule PO 100 mg BID DAVID Administration Hydrochlorothiazide 12.5 mg 09/06/20 21:45 09/06/20 21:45 Hydrochlorothiazide 12.5 Mg Tablet PO 12.5 mg BEDTIME DAVID Administration Protocol Morphine Sulfate 2 mg 09/06/20 10:37 09/07/20 12:16 Morphine Sulfate 2 Mg/Ml Cartridge IVPUSH 2 mg Q4H PRN Administration Pain, Severe (Pain Scale 7-10) Oxycodone HCl 5 mg 09/06/20 10:37 09/07/20 00:11 Oxycodone Hcl Immed Release 5 Mg Tablet PO 5 mg Q4H PRN Administration Pain, Moderate (Pain Scale 4-6 Sodium Chloride 3 ml 09/06/20 16:00 09/07/20 07:59 0.9 % Sodium Chloride Flush 3 Ml Syringe IVFLUSH 3 ml QSHIFT DAVID Administration Valsartan 80 mg 09/06/20 21:45 09/06/20 21:44 Valsartan 80 Mg Tablet PO 80 mg BEDTIME DAVID Administration Protocol Time Spent With Patient Time: Total time spent is greater than 50% in coordination of care (as documented) at patient's floor/unit and/or counseling patient: Time with patient: 15 - 24 minutes
--- NOTE | 2020-09-07 15:25 | PM.EVENT ---
Event Note Date of Service: 09/07/20 Event Note: Transferred out of the ICU this AM. Chart reviewed. BP on the softer side this afternoon, will hold antihypertensives tonight Check labs tomorrow. Will f/u tomorrow
[2020-09-07] MEDS: Atorvastatin Calcium 20 MG TABLET PO (20:22)
[2020-09-08] VITALS: BP 123/57; PULSE 74; RESP 18; TEMP 36.9; O2SAT 96
[2020-09-08] MEDS: Morphine Sulfate 2 MG/ML CARTRIDGE IVPUSH (00:11)
[2020-09-08 04:00] VITALS: BP 145/68; PULSE 85; RESP 18; TEMP 36.6; O2SAT 95
[2020-09-08] MEDS: oxyCODONE HCl Immed Release 5 MG TABLET PO ×2 (06:36→11:48)
[2020-09-08 07:26] VITALS: BP 132/61; PULSE 79; RESP 18; TEMP 36.3; O2SAT 95
[2020-09-08 08:14] LABS: Hematocrit 29.2 % (42-52); Hemoglobin 9.8 g/dl (14.0-18.0); Mean Corpuscular HGB Conc 33.6 g/dl (31.0-36.0); Mean Corpuscular Hemoglobin 31.1 pg (27.0-33.0); Mean Corpuscular Volume 92.7 fL (80-98); Mean Platelet Volume 10.5 fL (9.4-12.4); Platelet Count 270 X10*3/uL (160-400); Red Blood Count 3.15 X10*6/uL (4.60-5.80); Red Cell Distribution Width 14.2 % (11.0-16.0); White Blood Count 16.9 X10*3/uL (4.8-10.8)
[2020-09-08 08:53] LABS: Anion Gap 12 (12-20); Blood Urea Nitrogen 19 mg/dL (9-16); Calcium 8.1 mg/dL (8.4-10.2); Carbon Dioxide 27 mmol/L (22-29); Chloride 102 mmol/L (96-108); Creatinine Clr Calc Pharmacy 85.5; Estimated Glomerular Filt Rate > 60; Glucose Random 96 mg/dL (60-115); Potassium 4.1 mmol/l (3.3-5.1); Sodium 137 mmol/L (135-145)
[2020-09-08] MEDS: Aspirin Enteric Coated 81 MG TABLET.DR PO (10:10)
[2020-09-08] MEDS: 0.9 % Sodium Chloride Flush 3 ML SYRINGE IVFLUSH (10:11)
--- NOTE | 2020-09-08 10:18 | MHC.CM.PN ---
Patient will be discharged home today no services. will provide transport. patient and nurse aware.
--- NOTE | 2020-09-08 10:35 | HO.PM.IMPN ---
Subjective Subjective Date of Service: 09/08/20 Interval History: seen and examined this AM reports he is going home today most likely denies any chest pain / sob ROS General - no fevers or chills Cardiovascular - no chest pain Respiratory - no shortness of breath or cough Abdominal- no abdominal pain, nausea, vomiting, diarrhea Physical Exam Vital Signs: Vital Signs: Last Vital Signs Temp 97.3 F 09/08/20 07:26 Pulse 79 09/08/20 07:26 Resp 18 09/08/20 07:26 BP 132/61 09/08/20 07:26 Pulse Ox 95 09/08/20 07:26 Body Mass Index 22.1 Const: Other: General - no acute distress, appears comfortable Cardiovascular - regular rate and rhythm, S1-S2 Lungs - normal respiratory effort, clear to auscultation bilaterally, no wheezing Abdomen - soft, nontender, no rebound or guarding Extremities - no edema bilaterally Neuro - awake and alert, no focal deficits Objective Data Current Medications Generic Name Dose Route Start Last Admin Trade Name Freq PRN Reason Stop Dose Admin Acetaminophen 650 mg 09/06/20 10:37 09/07/20 16:13 Acetaminophen 325 Mg Tablet PO 650 mg Q6H PRN Administration Pain, Mild (Pain Scale 1-3) Aspirin 81 mg 09/07/20 09:00 09/08/20 10:10 Aspirin Enteric Coated 81 Mg Tablet. PO 81 mg DAILY DAVID Administration Atorvastatin Calcium 20 mg 09/06/20 21:00 09/07/20 20:22 Atorvastatin Calcium 20 Mg Tablet PO 20 mg BEDTIME DAVID Administration Docusate Sodium 100 mg 09/06/20 21:00 09/08/20 10:10 Docusate Sodium 100 Mg Capsule PO Not Given BID DAVID Morphine Sulfate 2 mg 09/06/20 10:37 09/08/20 00:11 Morphine Sulfate 2 Mg/Ml Cartridge IVPUSH 2 mg Q4H PRN Administration Pain, Severe (Pain Scale 7-10) Oxycodone HCl 5 mg 09/06/20 10:37 09/08/20 06:36 Oxycodone Hcl Immed Release 5 Mg Tablet PO 5 mg Q4H PRN Administration Pain, Moderate (Pain Scale 4-6 Sodium Chloride 3 ml 09/06/20 16:00 09/08/20 10:11 0.9 % Sodium Chloride Flush 3 Ml Syringe IVFLUSH 3 ml QSHIFT DAVID Administration Labs CBC & Chem 7: 09/08/20 06:53 09/08/20 06:53 Assessment and Plan (1) PAD (peripheral artery disease): Status: Acute Assessment and Plan: 65 yo M with PAD admitted for elective fem-fem bypass. Medical services consulted for co-management of medical issues. 1. HTN bp improved, resume bp meds tonight if d/c okay to continue 2. PAD mgmt per vascular on asa/statin will follow along if he remains in house
--- NOTE | 2020-09-09 19:50 | DS_ITS ---
ADMITTING DIAGNOSIS: Peripheral vascular disease. DISCHARGE DIAGNOSIS: Peripheral vascular disease. HOSPITAL COURSE: The patient was admitted electively on 09/06/2020, underwent femoral to femoral bypass (right to left with PTFE graft). Did extremely well with the operation. Postoperatively, was transferred to our ICU for overnight observation. Postop day 1, A-line and Lopez were removed and IV fluids were discontinued. He was transferred to the floor subsequently. Once that was done, he was observed for an additional day. Postop day 2, he was ambulating well. Pain was better controlled and he was subsequently discharged. CONDITION UPON DISCHARGE: Stable. DISCHARGE DIET: Regular. DISCHARGE INSTRUCTIONS: Included follow up with me in approximately 2 weeks' time for staple removal. Ambulate as tolerated, may shower within 1 day and to contact us should any bleeding or issues arise. DISCHARGE MEDICATIONS: To resume all home medications including aspirin, atorvastatin, cilostazol, ibuprofen, and telmisartan/hydrochlorothiazide. In addition, Percocet was added by me for pain control. MD ADAMARIS Gill/FAUZIA / [id number]
--- NOTE | 2020-10-22 08:12 | P.DS_ITS ---
DS: Providers Provider Date of Service: 10/22/20 Date of admission: 09/06/20 06:16 Primary care physician: Margarito Goss MD Consults: 09/07/20 08:51 Consult to Hospitalist Routine Consulting Provider: Hospitalist Reason for consultation: Medical comanagement DS: Diagnosis Discharge Diagnosis (1) PAD (peripheral artery disease): Status: Acute DS: Medications Discharge Medications Home Medications: Home Medications Medication Instructions Recorded Confirmed aspirin 81 mg tablet,delayed 81 mg PO DAILY 07/01/20 09/28/20 release atorvastatin 20 mg tablet 20 mg PO BEDTIME 07/01/20 09/28/20 cilostazol 100 mg tablet 100 mg PO BID 07/01/20 09/06/20 ibuprofen 800 mg tablet 800 mg PO TID PRN 07/01/20 09/01/20 telmisartan 40 1 tab PO BEDTIME 07/01/20 09/28/20 mg-hydrochlorothiazide 12.5 mg tablet Previous Rx's Medication Instructions Recorded oxycodone-acetaminophen [Percocet] 1 tab PO Q6H PRN #14 tab 09/08/20 DS: Summary Hospital Course Hospital Course: please see telephone dictation which is in chart Ronald Gonzalez MD SM/MODL / [id number] Time Spent with Patient Time attestation: Total time spent providing and/or coordinating discharge services: Discharge coordination time: Less than 30 minutes Physical Exam Vital Signs: Vital Signs: Last Vital Signs Temp 97.3 F 09/08/20 07:26 Pulse 79 09/08/20 07:26 Resp 18 09/08/20 07:26 BP 132/61 09/08/20 07:26 Pulse Ox 95 09/08/20 07:26 Body Mass Index 22.1 DS: Data Data Completed and Pending Completed studies during hospitalization [Text1]: Pending at discharge 09/06/20 08:46 Surgical [PTH] Routine Procedures Bypass Right Femoral Artery to Left Femoral Artery with Synthetic Substitute, Open Approach (09/06/20) Extirpation of Matter from Left Femoral Artery, Open Approach (09/06/20) Extirpation of Matter from Right Femoral Artery, Open Approach (09/06/20) Supplement Left Femoral Artery with Synthetic Substitute, Percutaneous Approach (09/06/20) Supplement Right Femoral Artery with Synthetic Substitute, Percutaneous Approach (09/06/20) Labs on day of discharge: Laboratory Tests 08/30/20 08/30/20 08/30/20 10:57 11:05 11:05 WBC 17.6 H RBC 4.19 L D Hgb 12.8 L Hct 38.8 L MCV 92.6 MCH 30.5 MCHC 33.0 RDW 14.2 Plt Count 321 MPV 9.7 Immature Gran % (Auto) Neut % (Auto) Lymph % (Auto) [place] % (Auto) Eos % (Auto) Baso % (Auto) Lymph # (Auto) [place] # (Auto) Eos # (Auto) Baso # (Auto) Abs Immat Gran (auto) Absolute Neuts (auto) Absolute Nucleated RBC 0.000 Nucleated RBC % (auto) 0.0 Smear Tech's Comments PT 12.0 INR 1.0 APTT 34.7 Sodium Potassium Chloride Carbon Dioxide Anion Gap BUN Creatinine Estim Creat Clear Calc Estimated GFR Random Glucose Calcium Albumin COVID-19 (JULISA) [facility] Com Blood Type A Negative Antibody Screen NEGATIVE 08/30/20 09/06/20 09/06/20 11:05 06:20 06:38 WBC 15.1 H RBC 3.88 L Hgb 11.8 L Hct 35.2 L MCV 90.7 MCH 30.4 MCHC 33.5 RDW 14.0 Plt Count 308 MPV 10.0 Immature Gran % (Auto) Neut % (Auto) Lymph % (Auto) [place] % (Auto) Eos % (Auto) Baso % (Auto) Lymph # (Auto) [place] # (Auto) Eos # (Auto) Baso # (Auto) Abs Immat Gran (auto) Absolute Neuts (auto) Absolute Nucleated RBC 0.000 Nucleated RBC % (auto) 0.0 Smear Tech's Comments PT INR APTT Sodium 139 Potassium 4.3 Chloride 102 Carbon Dioxide 25 Anion Gap 16 BUN 17 H Creatinine 1.15 Estim Creat Clear Calc 66.1 Estimated GFR > 60 Random Glucose 94 Calcium 10.6 H D Albumin COVID-19 (JULISA) Negative [facility] Com See Note Blood Type Antibody Screen 12/14/20 12/14/20 12/15/20 06:38 06:38 05:23 WBC 16.8 H RBC 2.94 L D Hgb 9.0 L D Hct 26.4 L D MCV 89.8 MCH 30.6 MCHC 34.1 RDW 13.8 Plt Count 243 MPV 10.1 Immature Gran % (Auto) 0.4 Neut % (Auto) 72.4 Lymph % (Auto) 17.2 L [place] % (Auto) 9.7 Eos % (Auto) 0.1 Baso % (Auto) 0.2 Lymph # (Auto) 2.9 [place] # (Auto) 1.6 H Eos # (Auto) 0.0 Baso # (Auto) 0.0 Abs Immat Gran (auto) 0.07 H Absolute Neuts (auto) 12.2 H Absolute Nucleated RBC 0.000 Nucleated RBC % (auto) 0.0 Smear Tech's Comments VERIFIED PT 13.4 H INR 1.1 APTT 31.5 Sodium 136 Potassium 3.9 Chloride 100 Carbon Dioxide 23 Anion Gap 17 BUN 28 H D Creatinine 1.49 H Estim Creat Clear Calc 51.0 Estimated GFR 47 Random Glucose 111 Calcium 9.3 D Albumin COVID-19 (JULISA) [email or web address] Blood Type Antibody Screen 09/07/20 09/07/20 09/07/20 05:23 05:23 08:37 WBC RBC Hgb Hct MCV MCH MCHC RDW Plt Count MPV Immature Gran % (Auto) Neut % (Auto) Lymph % (Auto) [place] % (Auto) Eos % (Auto) Baso % (Auto) Lymph # (Auto) [place] # (Auto) Eos # (Auto) Baso # (Auto) Abs Immat Gran (auto) Absolute Neuts (auto) Absolute Nucleated RBC Nucleated RBC % (auto) Smear Tech's Comments PT 13.1 H INR 1.1 APTT Sodium 137 Potassium 3.2 L Chloride 102 Carbon Dioxide 26 Anion Gap 12 BUN 23 H Creatinine 1.06 Estim Creat Clear Calc 71.7 Estimated GFR > 60 Random Glucose 96 Calcium 8.1 L D Albumin 3.6 COVID-19 (JULISA) [email or web address] Blood Type Antibody Screen 09/08/20 09/08/20 06:53 06:53 WBC 16.9 H RBC 3.15 L Hgb 9.8 L Hct 29.2 L MCV 92.7 MCH 31.1 MCHC 33.6 RDW 14.2 Plt Count 270 MPV 10.5 Immature Gran % (Auto) Neut % (Auto) Lymph % (Auto) [place] % (Auto) Eos % (Auto) Baso % (Auto) Lymph # (Auto) [place] # (Auto) Eos # (Auto) Baso # (Auto) Abs Immat Gran (auto) Absolute Neuts (auto) Absolute Nucleated RBC 0.000 Nucleated RBC % (auto) 0.0 Smear Tech's Comments PT INR APTT Sodium 137 Potassium 4.1 D Chloride 102 Carbon Dioxide 27 Anion Gap 12 BUN 19 H Creatinine 0.89 Estim Creat Clear Calc 85.5 Estimated GFR > 60 Random Glucose 96 Calcium 8.1 L Albumin COVID-19 (JULISA) COVID-19 Clin Com Blood Type Antibody Screen Discharge Plan Discharge Anticipated Discharge Date/Time: 09/08/20 09:28 Patient Disposition: Home, Self-Care Referrals: Margarito Goss MD [Primary Care Provider] - Discharge Medications: New oxycodone-acetaminophen [Percocet] 5-325 mg tablet 1 tab PO Q6H PRN (Reason: pain) Qty: 14 RF: 0 Continued aspirin 81 mg tablet,delayed release (DR/EC) 81 mg PO DAILY RF: 0 atorvastatin 20 mg tablet 20 mg PO BEDTIME RF: 0 ibuprofen 800 mg tablet 800 mg PO TID PRN (Reason: Pain) RF: 0 telmisartan-hydrochlorothiazid 40-12.5 mg tablet 1 tab PO BEDTIME RF: 0 cilostazol 100 mg tablet 100 mg PO BID RF: 0 Discharge Orders: Discharge Order (Routine); Ordered 09/08/20 Ordered By: Ronald Gonzalez Diet: advance to usual diet Activity on Discharge: As tolerated Visit Report Forms: Patient Portal Discharge page Care Plan Goals: ambulate better Health Concerns: PAD Plan of Treatment: post op monitor bypass Discharge Date/Time: 09/08/20 13:46
== END 2020-09-08 13:46 | disposition home or self-care (01) | DRG 181 ==
LOC: HO.SSSA 06:17 → HO.ICU 10:49 → HO.IMC 09-07 09:08
PROVIDERS: Family Medicine; Internal Medicine Cardiovascular Disease; Admitting Provider Surgery Vascular Surgery; PCP Internal Medicine; Visit Provider Internal Medicine Pulmonary Disease
PROC: 04CL0ZZ Extirpation of Matter from Left Femoral Artery, Open Approach (ICD-10-PCS; principal; 2020-09-06 07:30)
DX: I70.213 Atherosclerosis of native arteries of extremities with intermittent claudication, bilateral legs (principal); E78.5 Hyperlipidemia, unspecified; F17.210 Nicotine dependence, cigarettes, uncomplicated; Z71.6 Tobacco abuse counseling; Z86.73 Personal history of transient ischemic attack (TIA), and cerebral infarction without residual deficits; I10 Essential (primary) hypertension; Z20.828 Contact with and (suspected) exposure to other viral communicable diseases; Z79.82 Long term (current) use of aspirin; Z79.1 Long term (current) use of non-steroidal anti-inflammatories (NSAID); Z79.891 Long term (current) use of opiate analgesic; Z79.899 Other long term (current) drug therapy
CPT/HCPCS: 36415; 80048; 82040; 85025; 85027; 85610; 85730; 86850; 86900; 86901; 87635; 88304; 88311; C1757; C1768; J0690; J1100; J2250; J2270; J2370; J2405; J3010

== ENCOUNTER → 2020-09-21 09:27 | Outpatient (BNVA) | payer MEDICAID, SELFPAY | PROVIDERS: PCP Internal Medicine; Referring Provider Internal Medicine; Visit Provider Surgery Vascular Surgery | DX: Z48.812 Encounter for surgical aftercare following surgery on the circulatory system (principal) | CPT/HCPCS: 99212 ==

== ENCOUNTER 2020-09-30 07:36 | Outpatient (REF) | payer MEDICARE, MEDICAID, SELFPAY ==
[2020-09-30 08:33] LABS: Hematocrit 33.2 % (42-52); Hemoglobin 10.7 g/dl (14.0-18.0); Mean Corpuscular HGB Conc 32.2 g/dl (31.0-36.0); Mean Corpuscular Hemoglobin 30.9 pg (27.0-33.0); Mean Platelet Volume 9.8 fL (9.4-12.4); Platelet Count 305 X10*3/uL (160-400); Red Blood Count 3.46 X10*6/uL (4.60-5.80); Red Cell Distribution Width 15.1 % (11.0-16.0); White Blood Count 13.9 X10*3/uL (4.8-10.8)
[2020-09-30 09:06] LABS: Cholesterol 151 mg/dL; HDL Cholesterol 42 mg/dL; LDL Cholesterol Calculated 94 mg/dl; Triglycerides 78 mg/dL
== END 2020-09-30 07:37 | disposition home or self-care (01) ==
LOC: HO.LAB 07:36
PROVIDERS: PCP Internal Medicine; Visit Provider Internal Medicine
DX: I10 Essential (primary) hypertension (principal); E78.5 Hyperlipidemia, unspecified
CPT/HCPCS: 36415; 80061; 85027

== ENCOUNTER 2020-11-15 06:30 | Outpatient (REF) | payer MEDICARE, MEDICAID, SELFPAY ==
[2020-11-15 07:12] LABS: Hematocrit 33.8 % (42-52); Hemoglobin 11.1 g/dl (14.0-18.0); Mean Corpuscular HGB Conc 32.8 g/dl (31.0-36.0); Mean Corpuscular Hemoglobin 30.7 pg (27.0-33.0); Mean Corpuscular Volume 93.4 fL (80-98); Mean Platelet Volume 11.2 fL (9.4-12.4); Platelet Count 247 X10*3/uL (160-400); Red Blood Count 3.62 X10*6/uL (4.60-5.80); Red Cell Distribution Width 14.1 % (11.0-16.0); White Blood Count 11.3 X10*3/uL (4.8-10.8)
== END 2020-11-15 06:31 | disposition home or self-care (01) ==
LOC: HO.LAB 06:30
PROVIDERS: PCP Internal Medicine; Visit Provider Internal Medicine
DX: I73.9 Peripheral vascular disease, unspecified (principal)
CPT/HCPCS: 36415; 85027

== ENCOUNTER 2020-11-22 08:22 | Outpatient (REF) | payer MEDICARE, MEDICAID, SELFPAY ==
--- NOTE | ~2020-11-22 | US_ITS ---
EXAMINATION: COLOR-FLOW DUPLEX IMAGING OF THE BILATERAL LOWER EXTREMITY ARTERIAL SYSTEM. VELOCITY MEASUREMENTS THROUGHOUT THE FEMORAL ARTERIES CLINICAL INFORMATION: This is a 65-year-old male with history of femoral-femoral bypass graft. Peripheral vascular disease. Interventional Radiologist: Palomo Hicks M.D., F.S.I.R., FSathish. Comparison: Comparison is made to a previous study dated 09/18/2019 which suggests a moderate inflow disease in the left lower extremity with ankle-brachial index of 0.58. There was a normal right-sided study. RIGHT FEMORAL RUNOFF VELOCITIES: The right common femoral artery measures 123 cm/s and triphasic. The right profunda femoral artery is 241 cm/s and is triphasic. Right proximal superficial femoral artery measures 105 cm/s and biphasic. Mid superficial femoral artery is 99 cm/s and triphasic. Distal right superficial femoral artery measures 83 cm/s and is biphasic. Right popliteal velocity measures 57 cm/s and is biphasic. The posterior tibial artery velocity measures 62 cm/s and was biphasic. LEFT FEMORAL RUNOFF VELOCITIES: The left common femoral artery measures 217 cm/s and biphasic. The left profunda femoral artery is 147 cm/s and is biphasic. Left proximal superficial femoral artery measures 152 cm/s and triphasic. Mid superficial femoral artery is 98 cm/s and triphasic. Distal left superficial femoral artery measures 92 cm/s and is triphasic. Left popliteal velocity measures 82 cm/s and is biphasic. The posterior tibial artery velocity measures 47 cm/s and was biphasic. There is a right to left femoral-femoral bypass graft: Inflow artery: 177 cm/s and triphasic. Proximal anastomosis: 133 cm/s and triphasic. Proximal bypass graft: 91 cm/s and triphasic. Mid bypass graft: 90 cm/s and biphasic. Distal bypass graft: 106 cm/s and triphasic. Distal anastomosis: 89 cm/s and biphasic. Outflow artery: 135 cm/s and triphasic. US/US arterial duplex LE BI IMPRESSION: 1. There is no hemodynamically significant stenosis seen in the femoral-femoral bypass graft. 2. There is likely hemodynamically significant inflow disease on the left with an elevated left common femoral artery velocity. No hemodynamically significant stenosis is seen within the runoff. 3. There is likely a hemodynamically significant stenosis within the right profunda femoral artery.
== END 2020-11-22 08:23 | disposition home or self-care (01) ==
LOC: HO.US 08:22
PROVIDERS: Visit Provider Surgery Vascular Surgery
DX: I73.9 Peripheral vascular disease, unspecified (principal)
CPT/HCPCS: 93925

== ENCOUNTER → 2020-12-02 08:27 | Outpatient (BNVA) | payer MEDICARE, MEDICAID, SELFPAY | PROVIDERS: PCP Internal Medicine; Visit Provider Internal Medicine Cardiovascular Disease | DX: I25.10 Atherosclerotic heart disease of native coronary artery without angina pectoris (principal); I10 Essential (primary) hypertension; Z79.82 Long term (current) use of aspirin; Z79.899 Other long term (current) drug therapy | CPT/HCPCS: 99212 ==

== ENCOUNTER → 2020-12-07 08:52 | Outpatient (BNVA) | payer MEDICARE, MEDICAID, SELFPAY | PROVIDERS: PCP Internal Medicine; Visit Provider Surgery Vascular Surgery | DX: I73.9 Peripheral vascular disease, unspecified (principal) | CPT/HCPCS: 99212 ==

== ENCOUNTER 2021-03-04 07:40 | Outpatient (REF) | payer MEDICARE, MEDICAID, SELFPAY ==
[2021-03-04 09:16] LABS: Cholesterol 108 mg/dL; HDL Cholesterol 38 mg/dL; LDL Cholesterol Calculated 58 mg/dl; Triglycerides 62 mg/dL
== END 2021-03-04 07:41 | disposition home or self-care (01) ==
LOC: HO.LAB 07:40
PROVIDERS: PCP Internal Medicine; Visit Provider Internal Medicine Cardiovascular Disease
DX: I25.10 Atherosclerotic heart disease of native coronary artery without angina pectoris (principal); I73.9 Peripheral vascular disease, unspecified
CPT/HCPCS: 36415; 80061

== ENCOUNTER 2021-05-31 08:27 | Outpatient (REF) | payer MEDICARE, MEDICAID, SELFPAY ==
--- NOTE | ~2021-05-31 | US_ITS ---
EXAMINATION: COLOR-FLOW DUPLEX IMAGING OF THE BILATERAL LOWER EXTREMITY ARTERIAL SYSTEM. VELOCITY MEASUREMENTS THROUGHOUT THE FEMORAL ARTERIES WITH ANKLE-BRACHIAL PERIPHERAL ARTERIAL TESTING. Interventional Radiologist: Palomo Hicks M.D., F.S.I.R., F.A.C.R. CLINICAL INFORMATION: This is a 66-year-old male with peripheral vascular disease. RIGHT FEMORAL RUNOFF VELOCITIES: The right common femoral artery measures 196 cm/s and biphasic. The right profunda femoral artery is 232 cm/s and is monophasic. Right proximal superficial femoral artery measures 80 cm/s and triphasic. Mid superficial femoral artery is 105 cm/s and biphasic. Distal right superficial femoral artery measures 113 cm/s and is triphasic. Right popliteal velocity measures 48 cm/s and is triphasic. The posterior tibial artery velocity measures 56 cm/s and was biphasic. Velocities were also obtained in the bypass graft as follows: Inflow artery: 195 cm/s and triphasic. Proximal anastomosis: 194 cm/s and triphasic. Proximal bypass graft: 132 cm/s and triphasic. Mid bypass graft 70 cm/s and biphasic Distal bypass graft 84 cm/s and triphasic. Distal anastomosis: 80 cm/s and triphasic. Outflow artery: 196 cm/s and biphasic. The right brachial index measures 1.00. LEFT FEMORAL RUNOFF VELOCITIES: The left common femoral artery measures 65 cm/s and monophasic. The left profunda femoral artery is 155 cm/s and is triphasic. Left proximal superficial femoral artery measures 204 cm/s and triphasic. Mid superficial femoral artery is 90 cm/s and triphasic. Distal left superficial femoral artery measures 93 cm/s and is biphasic. Left popliteal velocity measures 59 cm/s and is biphasic. The left posterior tibial artery velocity measures 57 cm/s and is biphasic. The left brachial index is 0.90. US/US arterial duplex LE BI IMPRESSION: 1. There is a hemodynamically significant stenosis of the right profunda femoral artery. There are elevated velocities in the right common femoral artery. No hemodynamically significant stenosis is seen in the right lower extremity runoff. The bypass graft appears to be patent. 2. There is likely a hemodynamically significant stenosis of the proximal left superficial femoral artery. There is a decreased ankle-brachial index in the left lower extremity as well.
== END 2021-05-31 08:28 | disposition home or self-care (01) ==
LOC: HO.US 08:27
PROVIDERS: PCP Internal Medicine; Visit Provider Surgery Vascular Surgery
DX: I70.213 Atherosclerosis of native arteries of extremities with intermittent claudication, bilateral legs (principal)
CPT/HCPCS: 93925

== ENCOUNTER → 2021-06-09 08:56 | Outpatient (BNVA) | payer MEDICARE, MEDICAID, SELFPAY | PROVIDERS: PCP Internal Medicine; Visit Provider Surgery Vascular Surgery | DX: I73.9 Peripheral vascular disease, unspecified (principal); I65.23 Occlusion and stenosis of bilateral carotid arteries; I25.10 Atherosclerotic heart disease of native coronary artery without angina pectoris; I10 Essential (primary) hypertension; E78.5 Hyperlipidemia, unspecified; Z91.030 Bee allergy status | CPT/HCPCS: 99212 ==

== ENCOUNTER 2021-08-26 07:05 | Outpatient (REF) | payer MEDICARE, MEDICAID, SELFPAY ==
[2021-08-26 11:38] LABS: Cholesterol 121 mg/dL; Glucose Fasting 114 mg/dL (60-99); HDL Cholesterol 39 mg/dL; LDL Cholesterol Calculated 72 mg/dl; Triglycerides 50 mg/dL
[2021-08-26 11:58] LABS: Prostate Specific Antigen Scr 1.58 ng/mL (<0.05-4.0)
== END 2021-08-26 07:06 | disposition home or self-care (01) ==
LOC: HO.LAB 07:05
PROVIDERS: PCP Internal Medicine; Visit Provider Nurse Practitioner Family
DX: Z00.00 Encounter for general adult medical examination without abnormal findings (principal); Z12.5 Encounter for screening for malignant neoplasm of prostate; E78.00 Pure hypercholesterolemia, unspecified; E78.5 Hyperlipidemia, unspecified; I10 Essential (primary) hypertension
CPT/HCPCS: 36415; 80061; 82947; 84153

== ENCOUNTER 2021-09-29 06:57 | Outpatient (REF) | payer MEDICARE, MEDICAID, SELFPAY ==
[2021-09-29 07:31] LABS: Hematocrit 35.4 % (42.0-52.0); Hemoglobin 11.6 g/dl (14.0-18.0); Mean Corpuscular HGB Conc 32.8 g/dl (31.0-36.0); Mean Corpuscular Hemoglobin 30.4 pg (27.0-33.0); Mean Corpuscular Volume 92.7 fL (80.0-98.0); Mean Platelet Volume 10.1 fL (9.4-12.4); Platelet Count 258 X10*3/uL (160-400); Red Blood Count 3.82 X10*6/uL (4.60-5.80); Red Cell Distribution Width 14.9 % (11.0-16.0); White Blood Count 11.9 X10*3/uL (4.8-10.8)
[2021-09-29 08:01] LABS: Alanine Aminotransferase 15 U/L (0-40); Albumin Level 4.3 g/dL (3.5-5.0); Alkaline Phosphatase 62 U/L (39-117); Anion Gap 9 (12-20); Aspartate Amino Transferase 13 U/L (5-37); Bilirubin Direct 0.2 mg/dL (0.0-0.5); Bilirubin Total 0.4 mg/dL (0.0-1.0); Blood Urea Nitrogen 25 mg/dL (9-16); Calcium 9.6 mg/dL (8.4-10.2); Carbon Dioxide 29 mmol/L (22-29); Chloride 107 mmol/L (96-108); Cholesterol 119 mg/dL; Estimated Glomerular Filt Rate > 60; Glucose Random 117 mg/dL (60-115); HDL Cholesterol 39 mg/dL; LDL Cholesterol Calculated 68 mg/dl; Potassium 4.4 mmol/L (3.3-5.1); Sodium 141 mmol/L (135-145); Total Protein 7.3 g/dL (6.5-8.0); Triglycerides 60 mg/dL
[2021-09-29 08:23] LABS: Appearance Urine CLEAR; Color Urine YELLOW; Glucose Urine UA NEG (NEG); Leukocyte Esterase Urine NEG (NEG); Nitrite Urine NEG (NEG); Urine Blood NEG (NEG); Urine Ketones NEG (NEG); Urine Protein NEG (NEG-TRACE)
== END 2021-09-29 06:58 | disposition home or self-care (01) ==
LOC: HO.LAB 06:57
PROVIDERS: PCP Internal Medicine; Visit Provider Internal Medicine
DX: E78.5 Hyperlipidemia, unspecified (principal); I10 Essential (primary) hypertension; I25.10 Atherosclerotic heart disease of native coronary artery without angina pectoris
CPT/HCPCS: 36415; 80048; 80061; 80076; 81003; 85027

== ENCOUNTER → 2021-12-05 08:22 | Outpatient (BNVA) | payer MEDICARE, MEDICAID, SELFPAY | PROVIDERS: PCP Internal Medicine; Referring Provider Internal Medicine; Visit Provider Internal Medicine Cardiovascular Disease | DX: I25.10 Atherosclerotic heart disease of native coronary artery without angina pectoris (principal); I10 Essential (primary) hypertension | CPT/HCPCS: 93005; 99212 ==

== ENCOUNTER 2022-06-27 07:02 | Outpatient (REF) | payer MEDICARE, MEDICAID, SELFPAY ==
[2022-06-27 07:37] LABS: Hematocrit 35.2 % (42.0-52.0); Hemoglobin 11.6 g/dl (14.0-18.0); Mean Corpuscular Hemoglobin 30.3 pg (27.0-33.0); Mean Corpuscular Volume 91.9 fL (80.0-98.0); Mean Platelet Volume 10.2 fL (9.4-12.4); Platelet Count 259 X10*3/uL (160-400); Red Blood Count 3.83 X10*6/uL (4.60-5.80); Red Cell Distribution Width 14.6 % (11.0-16.0); White Blood Count 11.1 X10*3/uL (4.8-10.8)
[2022-06-27 08:26] LABS: Alanine Aminotransferase 18 U/L (0-40); Albumin Level 4.3 g/dL (3.5-5.0); Alkaline Phosphatase 68 U/L (39-117); Anion Gap 17 (12-20); Aspartate Amino Transferase 17 U/L (5-37); Bilirubin Direct < 0.2 mg/dL (0.0-0.5); Bilirubin Total 0.4 mg/dL (0.0-1.0); Blood Urea Nitrogen 21 mg/dL (9-16); Calcium 9.1 mg/dL (8.4-10.2); Carbon Dioxide 24 mmol/L (22-29); Chloride 103 mmol/L (96-108); Cholesterol 113 mg/dL; Estimated Glomerular Filt Rate > 60; Glucose Random 106 mg/dL (60-115); HDL Cholesterol 35 mg/dL; LDL Cholesterol Calculated 66 mg/dl; Potassium 4.2 mmol/L (3.3-5.1); Sodium 140 mmol/L (135-145); Total Protein 7.3 g/dL (6.5-8.0); Triglycerides 60 mg/dL
[2022-06-27 08:32] LABS: Thyroid Stimulating Hormone 4.31 uIU/mL (0.32-4.0)
== END 2022-06-27 07:03 | disposition home or self-care (01) ==
LOC: HO.LAB 07:02
PROVIDERS: PCP Internal Medicine; Visit Provider Internal Medicine
DX: E78.5 Hyperlipidemia, unspecified (principal); I10 Essential (primary) hypertension
CPT/HCPCS: 36415; 80048; 80061; 80076; 84443; 85027

== ENCOUNTER 2022-06-28 08:49 | Outpatient (REF) | payer MEDICARE, MEDICAID, SELFPAY ==
--- NOTE | ~2022-06-28 | US_ITS ---
EXAMINATION: NONINVASIVE ASSESSMENT OF THE ARTERIES OF BOTH LOWER EXTREMITIES INCLUDING PVR EXAM AND BILATERAL LOWER EXTREMITY DUPLEX CLINICAL INFORMATION: Peripheral vascular disease, unspecified. Technologist reports she notes the patient has a femoral-femoral bypass, right to left COMPARISON: Ultrasound 05/31/2021 TECHNIQUE: Ankle pulse volume recordings, ankle pressure measurements and ankle brachial indices were obtained of the lower extremity arterial system bilaterally in addition to duplex Doppler techniques with wave form analysis and measurement of velocities in the common femoral, profunda femoral, superficial femoral, popliteal, tibial and peroneal arteries. The study was performed only at rest. FINDINGS: RIGHT LEG 1. Right Ankle-Brachial Index: 1.01 (higher of the DP/PT) >0.97-1.25 = normal - no significant arterial disease 0.75-0.96 = mild peripheral arterial disease 0.5-0.74 = moderate peripheral arterial disease <0.50 = severe peripheral arterial disease <0.30 = critical arterial disease 2. Segmental Pressures (mmHg): Brachial: 134 Ankle: PT 136, DP 121 3. PVR Waveforms: Ankle: Abnormal 4. Direct Duplex: Common femoral artery proximal to femorofemoral bypass graft: 208 cm/s, Multiphasic Within the common femoral artery distal to the femorofemoral bypass graft there is irregular echogenic plaque and peak systolic velocity 79.2 cm/s with a multiphasic waveform. Profunda femoris artery origin: 272 cm/s, monophasic Profunda femoris artery just beyond the origin: 131 cm/s, monophasic Superficial femoral artery (proximal): 90.9 cm/s, Multiphasic Superficial femoral artery (mid): 90.9 cm/s, Multiphasic Superficial femoral artery (distal): 67.6 cm/s, Multiphasic Popliteal artery: 71.9 cm/s, Multiphasic Distal posterior tibial artery: 52.3 cm/s, multiphasic Peroneal artery: 63.6 cm/s, Multiphasic LEFT LE. Left Ankle-Brachial Index: 0.97 (higher of the DP/PT) >0.97-1.25 = normal - no significant arterial disease 0.75-0.96 = mild peripheral arterial disease 0.5-0.74 = moderate peripheral arterial disease <0.50 = severe peripheral arterial disease <0.30 = critical arterial disease 2. Segmental Pressures: Brachial: 127 Ankle: PT 130, DP 128 3. PVR Waveforms: Ankle: Abnormal 4. Direct Duplex: Common femoral artery (distal to femorofemoral bypass) : 101 cm/s, significant aliasing, though likely multiphasic Profunda femoris artery: 148 cm/s, Multiphasic Superficial femoral artery (proximal): 320 cm/s, Multiphasic Superficial femoral artery (mid): 114 cm/s, Multiphasic Superficial femoral artery (distal): 68 cm/s, Multiphasic Proximal Popliteal artery: 49.5 cm/s, Multiphasic Distal popliteal artery: 38.5 cm/s, Multiphasic Peroneal artery: 24.5 cm/s, Multiphasic FEMOROFEMORAL BYPASS GRAFT Inflow: 208 cm/s, multiphasic Anastomosis: 121 cm/s, multiphasic Proximal: 117 cm/s, multiphasic Midportion: 74.5 cm/s, multiphasic Distal: 93.8 cm/s, multiphasic Distal anastomosis: 82.7, multiphasic Outflow: 116 cm/s, multiphasic US/US arterial duplex LE BI IMPRESSION: Right KALINA is 1.01. There is echogenic plaque and decreased velocity within the common femoral artery just beyond the proximal anastomosis of the femorofemoral bypass graft with preserved multiphasic waveform. There is a probable severe stenosis at the origin of the profunda femoris and there is multiphasic flow throughout the remainder of the visualized right lower extremity vessels. The left KALINA is 0.97. There is increased peak systolic velocity within the proximal superficial femoral artery with preservation of multiphasic waveform which may be suggestive of moderate severe stenosis, though there is otherwise multiphasic flow throughout the left lower extremity. Normal multiphasic flow seen throughout the femorofemoral bypass.
== END 2022-06-28 08:50 | disposition home or self-care (01) ==
LOC: HO.US 08:49
PROVIDERS: Visit Provider Surgery Vascular Surgery
DX: I73.9 Peripheral vascular disease, unspecified (principal); I65.23 Occlusion and stenosis of bilateral carotid arteries
CPT/HCPCS: 93880; 93923; 93925

== ENCOUNTER → 2022-07-06 09:11 | Outpatient (BNVA) | payer MEDICARE, MEDICAID, SELFPAY | PROVIDERS: PCP Internal Medicine; Visit Provider Surgery Vascular Surgery | DX: I73.9 Peripheral vascular disease, unspecified (principal); I65.23 Occlusion and stenosis of bilateral carotid arteries | CPT/HCPCS: 99212 ==

== ENCOUNTER → 2022-12-07 08:24 | Outpatient (BNVA) | payer MEDICARE, MEDICAID, SELFPAY | PROVIDERS: PCP Internal Medicine; Referring Provider Internal Medicine; Visit Provider Internal Medicine Cardiovascular Disease | DX: I25.10 Atherosclerotic heart disease of native coronary artery without angina pectoris (principal); I10 Essential (primary) hypertension | CPT/HCPCS: 93005; 99212 ==

== ENCOUNTER 2022-12-12 07:25 | Outpatient (REF) | payer MEDICARE, MEDICAID, SELFPAY ==
[2022-12-12 08:10] LABS: Hematocrit 33.5 % (42.0-52.0); Hemoglobin 11.2 g/dl (14.0-18.0); Mean Corpuscular HGB Conc 33.4 g/dl (31.0-36.0); Mean Corpuscular Hemoglobin 30.4 pg (27.0-33.0); Mean Platelet Volume 10.5 fL (9.4-12.4); Platelet Count 266 X10*3/uL (160-400); Red Blood Count 3.68 X10*6/uL (4.60-5.80); Red Cell Distribution Width 14.4 % (11.0-16.0); White Blood Count 11.3 X10*3/uL (4.8-10.8)
[2022-12-12 08:16] LABS: Appearance Urine Clear; Color Urine Yellow; Glucose Urine UA Negative (Negative); Leukocyte Esterase Urine Negative (Negative); Nitrite Urine Negative (Negative); PH 6.5 (5.0-9.0); Specific Gravity - Urine 1.015 (1.005-1.025); Urine Blood Negative (Negative); Urine Ketones Negative (Negative); Urine Protein Negative (Neg-Trace)
[2022-12-12 08:45] LABS: Alanine Aminotransferase 16 U/L (0-40); Albumin Level 4.1 g/dL (3.5-5.0); Alkaline Phosphatase 62 U/L (39-117); Anion Gap 13 (12-20); Aspartate Amino Transferase 19 U/L (5-37); Bilirubin Direct 0.2 mg/dL (0.0-0.5); Bilirubin Total 0.6 mg/dL (0.0-1.0); Blood Urea Nitrogen 26 mg/dL (9-16); Calcium 9.2 mg/dL (8.4-10.2); Carbon Dioxide 26 mmol/L (22-29); Chloride 106 mmol/L (96-108); Cholesterol 120 mg/dL; Estimated Glomerular Filt Rate 58; Glucose Random 94 mg/dL (60-115); HDL Cholesterol 38 mg/dL; LDL Cholesterol Calculated 71 mg/dl; Potassium 4.6 mmol/L (3.3-5.1); Sodium 140 mmol/L (135-145); Total Protein 6.8 g/dL (6.5-8.0); Triglycerides 55 mg/dL
[2022-12-12 08:59] LABS: Thyroid Stimulating Hormone 2.75 uIU/mL (0.32-4.0)
== END 2022-12-12 07:26 | disposition home or self-care (01) ==
LOC: HO.LAB 07:25
PROVIDERS: PCP Internal Medicine; Visit Provider Internal Medicine
DX: E78.5 Hyperlipidemia, unspecified (principal); I10 Essential (primary) hypertension
CPT/HCPCS: 36415; 80048; 80061; 80076; 81003; 84443; 85027

== ENCOUNTER 2023-06-14 08:08 | Outpatient (AMB) | payer MEDICARE, SELFPAY ==
--- NOTE | 2023-06-14 08:11 | A.OFFPC_ITS ---
Vital Signs 06/14/23 08:12 Height 5 ft 11 in Weight 167 lb BMI 23.3 BP 140/78 H Blood Pressure Location Lt brachial Position Sitting Pulse 77 Pulse Source Pulse Oximeter Pulse Oximetry (%) 97 Oxygen Delivery Method Room Air Intake Visit Reasons: 6mth f/u Intake Note: Need refill on valsartan. Allergies bee pollen [Bee Stings] Allergy (Severe, Verified 06/14/23 08:34) Anaphylaxis Medication List - Last Reconciled 06/14/23 by Margarito Goss MD aspirin 81 mg PO DAILY atorvastatin 80 mg PO DAILY epinephrine (EpiPen 2-Grzegorz) 0.3 mg (0.3 mL) IM Q10M PRN hydrochlorothiazide 12.5 mg PO DAILY rivaroxaban (Xarelto) 2.5 mg PO BID 90 days valsartan 40 mg PO DAILY Tobacco use date assessed: 12/07/22 Fall risk assessment: No Falls in past year Last assessed Fall Risk: 06/14/23 Dental Screening Dental Screen Date: 06/14/23 Did you have a dental visit in the last 12 months?: No Did you have a dental problem in the last 6 months where you did not have access to dental care?: No Was dental information given to patient?: No HPI 6mth f/u HPI Details 68-year-old male presents to the office to discuss his chronic medical conditions. Patient reports he has not been taking valsartan for the past month. Pharmacy did not fill the prescription. He is able to function and do all activities of daily living. Scheduled for an upcoming ultrasound to examine the circulation in the lower extremities. 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 Vision is normal and is able to drive well at night. No urinary incontinence. [facility] Medical History Screening for eye condition Prostate cancer screening CAD (coronary artery disease) History of arteriography HTN (hypertension) PVD (peripheral vascular disease) Hyperlipidemia CVA (cerebral vascular accident) (~03/2018) Surgical History History of njiix-[id number]-[id number] bypass H/O colonoscopy Colonoscopy planned (~2009) Family History Father Cancer Mother CVD (cardiovascular disease) Obese Sister No problems noted. Son No problems noted. Son No problems noted. Social History Household Members: Spouse and Children Housing: House Are you a primary out of school hours care worker to a significant other at home: No Do you presently have visiting nurse or other home services: No Alcohol intake: never Patient Tobacco Use Status: Former Tobacco user Quit Date: 12 years ago Tobacco use type: Cigarette Years Smoked: 30 +/- e-Cigarette/Vaping Use: Never Used Second Hand Smoke Exposure: No Substance Use Type: Marijuana service: No Current occupational status: retired Cognitive needs: No Hearing needs: No Vision needs: Yes (Glasses) Questionnaire PHQ-9 Over the last 2 weeks, how often have you been bothered by any of the following problems? 1. Little interest or pleasure in doing things: not at all 2. Feeling down, depressed, or hopeless: not at all 3. Trouble falling or staying asleep, or sleeping too much: not at all 4. Feeling tired or having little energy: not at all 5. Poor appetite or overeating: not at all 6. Feeling bad about yourself - or that you are a failure or have let yourself or your family down: not at all 7. Trouble concentrating on things, such as reading the newspaper or watching television: not at all 8. Moving or speaking so slowly that other people could have noticed. Or the opposite - being so fidgety or restless that you have been moving around a lot more than usual: not at all 9. Thoughts that you would be better off or of hurting yourself in some way: not at all Total score: 0 Depression Screening Interpretation: Negative Source: Developed by Drs. Julian Robert, Angella Uriarte, Rashel Barahona and colleagues, with an educational shayna from [employer]. Thrive Questionnaire Date Thrive assessed: 12/07/22 AUDIT C Alcohol Use Questionnaire (AUDIT-C) 1. How often do you have a drink containing alcohol?: Never 3. How often do you have six or more drinks on one occasion?: Never Total Score: 0 WELLINGTON-7 AMB Questionnaire WELLINGTON-7 Date WELLINGTON - 7 assessed: 12/07/22 Source: Developed by Drs. Julian Robert, Angella Uriarte, Rashel Barahona and colleagues, with an educational shayna from [employer]. Physical exam (Primary Care) Vital Signs: Last Vital Signs Pulse 77 06/14/23 08:12 BP 140/78 H 06/14/23 08:12 Pulse Ox 97 06/14/23 08:12 Oxygen Delivery Method Room Air 06/14/23 08:12 Care Plan Goal for BP management: Blood pressure is stable. Valsartan has been restarted. BMI result Body Mass Index 23.3 Tobacco/Smoking Status: Tobacco use Status Tobacco use date assessed 12/07/22 06/14/23 08:18 Patient Tobacco Use Status Former Tobacco user 06/14/23 08:18 Tobacco use type Cigarette 06/14/23 08:18 e-Cigarette/Vaping Use Never Used 06/14/23 08:18 PHQ-9: PHQ-9 Score PHQ-9: Total score 0 06/14/23 08:18 Depression Screening Interpretation: Negative Thrive Assessment: Date of Thrive Assessment Date Thrive assessed 12/07/22 06/14/23 08:18 Const General: cooperative and healthy appearing Nutritional Appearance: well nourished Orientation/consciousness: patient oriented x3 Limitations: no limitations HENMT Head: Yes normal to inspection Eyes General: appearance normal, both eyes and all related structures Neck Neck: Yes normal visual inspection Chest Chest palpation & inspection: normal palpation of entire chest wall Resp Effort & Inspection: normal respiratory effort Neuro General: patient oriented x3 Assessment and Plan Assessment & Plan (1) CVA (cerebral vascular accident): Onset Date: ~03/2018 Comment: Left hemiparesis, followed by Dr. Jacskon. total occlusion of the right internal carotid artery, no interventions performed Code(s): I63.9 - Cerebral infarction, unspecified Plan: Condition is stable. Patient is taking an oral anticoagulant. (2) PAD (peripheral artery disease): Comment: 09/06/2020 - femoral to femoral bypass Code(s): I73.9 - Peripheral vascular disease, unspecified Plan: No objective evidence of peripheral arterial disease at the moment. Encouraged him to get the ultrasound down to check the patency of the stents. (3) HTN (hypertension): Code(s): I10 - Essential (primary) hypertension Qualifiers: Hypertension type: essential hypertension Qualified Code(s): I10 - Essential (primary) hypertension Plan: Blood pressure is stable. Continue medications at same dosage. (4) Hyperlipidemia: Code(s): E78.5 - Hyperlipidemia, unspecified Qualifiers: Hyperlipidemia type: familial hypercholesterolemia Qualified Code(s): E78.01 - Familial hypercholesterolemia Plan: Continue medications at same dosage. Blood work has been ordered. Orders: Orders Complete Blood Count no Diff Today E78.5 - Hyperlipidemia, unspecified, I10 - Essential (primary) hypertension, I63.9 - Cerebral infarction, unspecified, I73.9 - Peripheral vascular disease, unspecified Liver Panel Today E78.5 - Hyperlipidemia, unspecified, I10 - Essential (primary) hypertension, I63.9 - Cerebral infarction, unspecified, I73.9 - Peripheral vascular disease, unspecified Basic Metabolic Panel Today E78.5 - Hyperlipidemia, unspecified, I10 - Essential (primary) hypertension, I63.9 - Cerebral infarction, unspecified, I73.9 - Peripheral vascular disease, unspecified Lipid Panel Today E78.5 - Hyperlipidemia, unspecified, I10 - Essential (primary) hypertension, I63.9 - Cerebral infarction, unspecified, I73.9 - Peripheral vascular disease, unspecified Prostate Specific Antigen Scr Today E78.5 - Hyperlipidemia, unspecified, I10 - Essential (primary) hypertension, I63.9 - Cerebral infarction, unspecified, I73.9 - Peripheral vascular disease, unspecified Medications: Refilled valsartan 40 mg PO DAILY 90 tabs 1RF Coding Level of Care Code Est Pt Level 4 (77683) Diagnoses CVA (cerebral vascular accident) I63.9 PAD (peripheral artery disease) I73.9 Essential hypertension I10 Hypertension type: essential hypertension Familial hypercholesterolemia E78.01 Hyperlipidemia type: familial hypercholesterolemia
[2023-06-14 08:12] VITALS: BP 140/78; PULSE 77; O2SAT 97; BMI 23.3
== END 2023-06-14 08:26 | disposition home or self-care (01) ==
PROVIDERS: PCP Internal Medicine; Visit Provider Internal Medicine
DX: I69.354 Hemiplegia and hemiparesis following cerebral infarction affecting left non-dominant side (principal); I73.9 Peripheral vascular disease, unspecified; I10 Essential (primary) hypertension; E78.01 Familial hypercholesterolemia
CPT/HCPCS: 99214

== ENCOUNTER 2023-06-14 08:32 | Outpatient (REF) | payer MEDICARE, MEDICAID, SELFPAY ==
[2023-06-14 09:11] LABS: Hematocrit 35.9 % (42.0-52.0); Hemoglobin 12.1 g/dl (14.0-18.0); Mean Corpuscular HGB Conc 33.7 g/dl (31.0-36.0); Mean Corpuscular Hemoglobin 30.3 pg (27.0-33.0); Mean Platelet Volume 10.3 fL (9.4-12.4); Platelet Count 285 X10*3/uL (160-400); Red Blood Count 3.99 X10*6/uL (4.60-5.80); Red Cell Distribution Width 14.6 % (11.0-16.0); White Blood Count 10.6 X10*3/uL (4.8-10.8)
[2023-06-14 09:52] LABS: Alanine Aminotransferase 16 U/L (0-40); Albumin Level 4.2 g/dL (3.5-5.0); Alkaline Phosphatase 61 U/L (39-117); Anion Gap 14 (12-20); Aspartate Amino Transferase 15 U/L (5-37); Bilirubin Direct 0.2 mg/dL (0.0-0.5); Bilirubin Total 0.4 mg/dL (0.0-1.0); Blood Urea Nitrogen 20 mg/dL (9-16); Carbon Dioxide 24 mmol/L (22-29); Chloride 107 mmol/L (96-108); Cholesterol 118 mg/dL (<200); Estimated Glomerular Filt Rate 58; Glucose Random 113 mg/dL (60-115); HDL Cholesterol 38 mg/dL (>40); LDL Cholesterol Calculated 65 mg/dL (<100); Potassium 4.2 mmol/L (3.3-5.1); Sodium 141 mmol/L (135-145); Total Protein 7.8 g/dL (6.5-8.0); Triglycerides 76 mg/dL (<150)
[2023-06-14 10:14] LABS: Prostate Specific Antigen Scr 1.37 ng/mL (<0.05-4.0)
== END 2023-06-14 08:33 | disposition home or self-care (01) ==
LOC: HO.LAB 08:32
PROVIDERS: PCP Internal Medicine; Visit Provider Internal Medicine
DX: I73.9 Peripheral vascular disease, unspecified (principal); E78.5 Hyperlipidemia, unspecified; I10 Essential (primary) hypertension; Z86.73 Personal history of transient ischemic attack (TIA), and cerebral infarction without residual deficits; Z12.5 Encounter for screening for malignant neoplasm of prostate
CPT/HCPCS: 36415; 80048; 80061; 80076; 84153; 85027

== ENCOUNTER 2023-07-03 09:49 | Outpatient (REF) | payer MEDICARE, MEDICAID, SELFPAY | END 2023-07-03 09:50 | disposition home or self-care (01) | LOC: HO.US 09:49 | PROVIDERS: PCP Internal Medicine; Visit Provider Surgery Vascular Surgery | DX: I65.23 Occlusion and stenosis of bilateral carotid arteries (principal); I73.9 Peripheral vascular disease, unspecified | CPT/HCPCS: 93880; 93925 ==

== ENCOUNTER 2023-08-07 09:48 | Outpatient (AMB) | payer MEDICARE, MEDICAID, SELFPAY ==
--- NOTE | 2023-08-07 09:53 | MHC.OFFVIS ---
Intake Vital Signs 08/07/23 09:56 Height 5 ft 11 in Weight 157 lb BMI 21.9 Intake Visit Reasons: fu US Intake Note: pt here for a 1 year fu bilateral LE arterial US on 07/03/23 wih a hx of fem fem bypass on 09/06/20 Pt says that he is doing ok and has no issues to discuss at he moment. He only gets a little bit of pain when hes on his feet for a long time but he says is expected Allergies bee pollen [Bee Stings] Allergy (Severe, Verified 08/07/23 09:56) Anaphylaxis HPI fu US HPI Details Very pleasant 68-year-old gentleman presents for routine surveillance follow-up regarding fem-fem bypass. He continues to remain quite active. 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 He has had no difficulty. He can walk several blocks with no issues. He is currently being maintained on aspirin and Xarelto. He now presents for routine follow-up. [facility] Medical History Screening for eye condition Prostate cancer screening CAD (coronary artery disease) History of arteriography HTN (hypertension) PVD (peripheral vascular disease) Hyperlipidemia CVA (cerebral vascular accident) (~03/2018) Surgical History History of lumpx-rxiqj-lxxgqlt bypass H/O colonoscopy Colonoscopy planned (~2009) Family History Father Cancer Mother CVD (cardiovascular disease) Obese Sister No problems noted. Son No problems noted. Son No problems noted. Social History Household Members: Spouse and Children Housing: House Are you a primary career education teacher to a significant other at home: No Do you presently have visiting nurse or other home services: No Alcohol intake: never Patient Tobacco Use Status: Former Tobacco user Quit Date: 12 years ago Tobacco use type: Cigarette Years Smoked: 30 +/- e-Cigarette/Vaping Use: Never Used Second Hand Smoke Exposure: No Substance Use Type: Marijuana service: No Current occupational status: retired Cognitive needs: No Hearing needs: No Vision needs: Yes (Glasses) Review of Systems Const All systems reviewed & are unremarkable except as noted in HPI and below Reports no additional complaints ENT Reports Normal hearing present Card Denies chest pain, Denies chest pain at rest, Denies chest pain with activity and Denies pedal edema Resp Denies cough GI Denies abdominal pain Musc Denies abnormal gait, Denies muscle cramps and Denies radiating pain into limb Skin/Breast Denies skin ulcer and Denies wounds Neuro Reports Normal hearing present and Denies abnormal gait Psych Reports no additional complaints Physical Exam Vital Signs: BMI result Body Mass Index 21.9 Const General: cooperative, healthy appearing and comfortable Orientation/consciousness: oriented to person, oriented to place and oriented to time HEENT Head: Yes normal to inspection Neck Neck: Yes normal visual inspection Carotids: no bruits Chest Chest palpation & inspection: normal inspection of the chest Resp Effort & Inspection: normal respiratory effort and able to speak in complete sentences Auscultation: clear to auscultation bilaterally, no crackles, no rales, no rhonchi and no wheezes Cardio Rate: regular rate Rhythm: regular rhythm Heart sounds: S1 normal heart sound present and S2 normal heart sound present Bruits: no carotid bruits Peripheral pulses: Peripheral pulses 2+ throughout GI Inspection: Yes normal to inspection Skin Wounds: no wounds Hair: normal Neuro General: oriented to person, oriented to place and oriented to time Cranial nerves: Yes CN's II-XII intact bilaterally and Yes Normal hearing present Cognition (Neuro): normal cognition Motor exam (neuro): 5/5 motor strength present throughout Extrem Other: venous exam: No significant superficial varicosities or spider telangiectasias, minimal edema General: No clubbing, No cyanosis and No edema Psych Appearance: grossly normal Mental Status: mental status grossly normal Speech and movement: Normal speech and movement present Results Reviewed Results Reviewed: Noninvasive arterial testing dated 07/03/2023 demonstrates KALINA on the right of 0.99 and on the left of 0.86 with no issues with his right to left femoral to femoral bypass. Carotid testing dated 07/03/2023 demonstrates known right-sided occlusion with left-sided 0-49% stenosis. Written report and images of both studies were reviewed. Assessment & Plan Assessment & Plan (1) PAD (peripheral artery disease): Comment: 09/06/2020 - femoral to femoral bypass Code(s): I73.9 - Peripheral vascular disease, unspecified Plan: In short patient has stable claudication. I did review the pathophysiology of peripheral vascular disease with the patient. In addition we did discuss routine conservative measures including a healthy diet and the importance of exercise and ambulation. We did discuss risk factor modification. The patient will continue to to follow-up with surveillance follow-up in approximately 1 year. Thank you for allowing us to participate in this patient's care. If there are any questions or concerns please do not hesitate to contact us. (2) Bilateral carotid artery stenosis: Code(s): I65.23 - Occlusion and stenosis of bilateral carotid arteries Plan: In short patient has asymptomatic carotid disease. We have reviewed signs and symptoms of a stroke. We also discussed risk factor modification inclusive a healthy diet low in cholesterol. The patient will follow up with us with surveillance ultrasound of the carotids 1 year. Should there be any changes or signs or symptoms of a stroke we will be happy to see them back sooner. Thank you for allowing us to participate in this patient's care. If there are any questions or concerns please do not hesitate to contact us. Orders: Orders US arterial duplex LE BI 364 Days I73.9 - Peripheral vascular disease, unspecified US carotid duplex BI 364 Days I65.23 - Occlusion and stenosis of bilateral carotid arteries Coding Level of Care Code Est Pt Level 4 (00188) Diagnoses PAD (peripheral artery disease) I73.9 Bilateral carotid artery stenosis I65.23
[2023-08-07 09:56] VITALS: BMI 21.9
== END 2023-08-07 10:24 | disposition home or self-care (01) ==
PROVIDERS: PCP Internal Medicine; Visit Provider Surgery Vascular Surgery
DX: I73.9 Peripheral vascular disease, unspecified (principal); I65.23 Occlusion and stenosis of bilateral carotid arteries
CPT/HCPCS: 99214

== ENCOUNTER → 2023-08-07 09:48 | Outpatient (BNVA) | payer MEDICARE, MEDICAID, SELFPAY | PROVIDERS: PCP Internal Medicine; Visit Provider Surgery Vascular Surgery | DX: I73.9 Peripheral vascular disease, unspecified (principal); I65.23 Occlusion and stenosis of bilateral carotid arteries | CPT/HCPCS: 99212 ==

== ENCOUNTER → 2023-10-29 08:07 | Outpatient (REF) | payer MEDICARE, MEDICAID, SELFPAY ==
--- NOTE | 2023-10-29 08:09 | CA_ITS ---
Transthoracic Echocardiogram Patient (Last, First, Middle): Darrian De Jesus E Gender: Male Date of : 1955 Age: 68 Procedure Date: 10/29/2023 Procedure Type: Transthoracic Echocardiogram Location: OP Height: 180.34 cm Weight: 75.75 kg BSA: 1.95 m2 Heart Rate: bpm BP: 110 / 68 mmHg Blind Teacher: Referring MD: Carmine Beauchamp MD Symptoms: I10 - Essential (primary) hypertension Study Quality: Adequate ECG Rhythm: Sinus Conclusions: - The left ventricular systolic function is normal. The calculated ejection fraction is 55% by biplane method. - The basal inferolateral segment is hypokinetic. - No obvious valvular pathology seen on this study. Findings Left Ventricle Normal left ventricular cavity size. There is normal left ventricular wall thickness. The left ventricular systolic function is normal. The calculated ejection fraction is 55% by biplane method. Diastolic function is normal for age. LV peak GLS -17.9%. Wall Motion Rest Echo Findings The basal inferolateral segment is hypokinetic. Right Ventricle Normal right ventricular cavity size and systolic function. Atria Both atria are normal in size. Aortic Valve The aortic valve was not well visualized. There is no aortic valve stenosis. There is no aortic valve regurgitation. Mitral Valve The mitral valve appears normal. There is no mitral valve regurgitation. There is no mitral valve stenosis. Pulmonic Valve The pulmonic valve is likely normal. Tricuspid Valve Normal tricuspid valve structure. There is trace tricuspid valve regurgitation. There is no evidence of pulmonary hypertension. Great Vessels The asc aorta is normal in size. Venous The inferior vena cava is normal in size and collapses greater than 50% with inspiration. Pericardium/Pleural There is no evidence of pericardial effusion. Prior Study Comparison No significant change compared to prior study dated: 08/30/2020. Recommendations, Care & Conclusions No obvious valvular pathology seen on this study. Measurements 2D Linear Measurements IVSd: 0.94 0.6-0.9/0.6-1.0 cm LVIDd: 4.92 3.9-5.3/4.2-5.9 cm LVIDd Index: 2.52 2.4-3.2/2.2-3.1 cm/m2 LVIDs: 2.68 2.0-3.6 cm LVPWd: 1.02 0.7-1.1 cm Ao Root: 3.90 2.1-3.5 cm LA Diam: 3.20 2.7-3.8/3.0-4.0 cm LAIDs Index: 1.64 1.5-2.3 cm/m2 LV Mass: 214.09 67-162/88-224 g LV Mass Index: 109.79 43-95/49-115 g/m2 LVOT Diam: 2.30 3.0+(-)1.3 cm 2D Systolic Function EF 4C: 57.10 >55% EF 2C: 53.50 >55% EF BiP: 55.10 >55% Mitral Valve MV Pk E: 0.48 MV PK A: 0.78 MV Decel Time: 275.00 E/A: 0.60 E'Lateral: 9.03 E'Medial: 8.05 E/E' Med: 6.00 E/E' Lat: 5.40 PHT: 81.00 MVA PHT: 2.72 Decel [place]: 1.76 Aortic Valve AoV Pk Kike: 1.33 AoV Mn Kike: 0.83 AoV VTI: 0.29 AoV Pk Grad: 7.00 Aov Mn Grad: 3.00 PAMELA Cont.VTI: 2.48 LVOT LVOT Pk Kike: 0.87 LVOT Mn Kike: 0.53 LVOT VTI: 0.18 LVOT Pk Grad: 3.00 LVOT Mn Grad: 1.00 LVOT Diam: 2.30 LVOT Area: 4.15 Diastolic Function MV Pk E: 0.48 MV Pk A: 0.78 E/A: 0.60 E'Medial: 8.05 E/E' Med: 6.00 E' Laterial: 9.03 E/E' Lat: 5.40 Right Ventricle TAPSE (mm): 22.10 TVS' Kike: 10.80 Tricuspid Valve TR Pk Kike: 2.27 TR Pk Grad: 21.00 Great Vessels Aorta Ao Root-2D: 3.90 2.0-3.7 cm Ao Asc: 3.40 2.1-3.4 cm Pulmonary Valve PV Pk Kike: 0.87 Peak PV Grad: 3.00 Updated in Other Vendor System with Status of Final Donald Stoll MD electronically signed on 10/29/2023 7:24:55 AM with status of Final
== END ==
LOC: HO.CARD 08:07
PROVIDERS: PCP Internal Medicine; Visit Provider Internal Medicine Cardiovascular Disease
DX: I10 Essential (primary) hypertension (principal)
CPT/HCPCS: 93306; 93356

== ENCOUNTER → 2023-10-29 08:09 | Outpatient (BNV) | payer MEDICARE, MEDICAID, SELFPAY | PROVIDERS: PCP Internal Medicine; Visit Provider Internal Medicine | DX: I10 Essential (primary) hypertension (principal) | CPT/HCPCS: 93306 ==

== ENCOUNTER 2023-12-10 08:35 | Outpatient (AMB) | payer MEDICARE, MEDICAID, SELFPAY ==
--- NOTE | 2023-12-10 08:51 | MHC.OFFVIS ---
Intake Vital Signs 12/10/23 08:52 Height 5 ft 11 in Weight 167 lb 8.821 oz BMI 23.4 BP 130/72 Blood Pressure Location Lt brachial Position Sitting Pulse 69 Intake Visit Reasons: 1 yr s/p echo Intake Note: 1 year follow-up after echo with ekg feeling good Stationary Engineer Required: No Allergies bee pollen [Bee Stings] Allergy (Severe, Verified 08/07/23 09:56) Anaphylaxis Medication List - Last Reconciled 12/10/23 by Carmine Beauchamp MD aspirin 81 mg PO DAILY atorvastatin 80 mg PO DAILY epinephrine (EpiPen 2-Grzegorz) 0.3 mg (0.3 mL) IM Q10M PRN hydrochlorothiazide 12.5 mg PO DAILY rivaroxaban (Xarelto) 2.5 mg PO BID valsartan 40 mg PO DAILY HPI HPI Comments History of Present Illness Details Darrian comes for follow-up. He said when he does a lot of stairs he does get some cramping in his left thigh but this usually resolves very quickly. Denies any exertional chest pain or shortness of breath. Maintains activity level. Recent echocardiogram showed normal LV ejection fraction with basal inferolateral wall motion abnormality. Otherwise no symptoms. Denies any other symptoms. Last LDL in May was within normal limits. Tolerating his medications. Blood pressures been well controlled. Denies smoking. [facility] Medical History Screening for eye condition Prostate cancer screening CAD (coronary artery disease) History of arteriography HTN (hypertension) PVD (peripheral vascular disease) Hyperlipidemia CVA (cerebral vascular accident) (~03/2018) Surgical History History of tnfuf-akbdc-nkfitkd bypass H/O colonoscopy Colonoscopy planned (~2009) Family History Father Cancer Mother CVD (cardiovascular disease) Obese Sister No problems noted. Son No problems noted. Son No problems noted. Social History Household Members: Spouse and Children Housing: House Are you a primary urgent care technician to a significant other at home: No Do you presently have visiting nurse or other home services: No Alcohol intake: never Comment: asa feet pink and warm to touch Patient Tobacco Use Status: Former Tobacco user Quit Date: 12 years ago Tobacco use type: Cigarette Years Smoked: 30 +/- e-Cigarette/Vaping Use: Never Used Second Hand Smoke Exposure: No Substance Use Type: Marijuana service: No Current occupational status: retired Cognitive needs: No Hearing needs: No Vision needs: Yes (Glasses) Review of Systems Const Denies chills, Denies fatigue, Denies fever(s), Denies frequent falls, Denies weakness, Denies weight gain and Denies weight loss ENT Denies dizziness Card Denies chest pain, Denies leg edema, Denies lightheadedness, Denies palpitations, Denies dyspnea, Denies dyspnea on exertion, Denies orthopnea and Denies other (loss of consciousness) Resp Denies cough, Denies dyspnea and Denies dyspnea on exertion GI Denies hematochezia and Denies change in stool character Musc Denies abnormal gait, Denies muscle weakness, Denies numbness, Denies radiating pain into limb and Denies tingling Neuro Denies abnormal gait, Denies dizziness, Denies frequent falls, Denies numbness, Denies tingling and Denies weakness Endo Denies fatigue and Denies palpitations Physical Exam Vital Signs: Last Vital Signs Pulse 69 12/10/23 08:52 BP 130/72 12/10/23 08:52 BMI result Body Mass Index 23.4 Const General: cooperative, comfortable, no acute distress, alert and awake Nutritional Appearance: thin Orientation/consciousness: patient oriented x3 Limitations: no limitations Neck Neck: Yes trachea midline, Yes supple and Yes no JVD Chest Chest palpation & inspection: normal inspection of the chest Resp Effort & Inspection: normal respiratory effort Auscultation: no rales, no wheezes and diminished lung sounds Cardio Jugular venous distension: no JVD Palpation: normal PMI Rate: regular rate Rhythm: regular rhythm Heart sounds: S1 normal heart sound present and S2 normal heart sound present Skin General skin exam: no rashes or lesions noted Neuro General: patient oriented x3 and no focal motor deficits Extrem General: Yes no clubbing, cyanosis or edema Psych Appearance: grossly normal Office Procedures EKG Details: EKG shows normal sinus rhythm with normal EKG 66190-[id number], Complete Assessment & Plan Assessment & Plan (1) CAD (coronary artery disease): Code(s): I25.10 - Atherosclerotic heart disease of [place] coronary artery without angina pectoris Plan: CAD with diffuse vascular disease including bilateral carotid disease as well as peripheral vascular disease. Currently without any cardiac symptoms with exertion. He maintains activity level as tolerated. Advised to call me with any new symptoms. At this point time continue aspirin as well as low-dose oral anticoagulation which she is tolerating well. Continue high-intensity statin therapy along with aggressive control blood pressure LDL is well optimized. Encouraged to continue to participate in regular physical activity. (2) HTN (hypertension): Code(s): I10 - Essential (primary) hypertension Qualifiers: Hypertension type: essential hypertension Qualified Code(s): I10 - Essential (primary) hypertension Plan: Hypertension which is currently well optimized on low-dose valsartan hydrochlorothiazide therapy. Continue to monitor blood pressure at home maintain a log. Low-salt diet was discussed. A lot target goal blood pressure less than 130/84. Follow up in the clinic in 1 year's time, sooner p.r.n.. Thank you for allowing me to partake in his care Coding Level of Care Code Est Pt Level 4 (24970) Diagnoses CAD (coronary artery disease) I25.10 Essential hypertension I10 Hypertension type: essential hypertension CPT Codes EKG - CPT: 04815-Nqsfrtgemxlikkizy, Complete ([id number])
[2023-12-10 08:52] VITALS: BP 130/72; PULSE 69; BMI 23.4
== END 2023-12-10 09:08 | disposition home or self-care (01) ==
PROVIDERS: Visit Provider Internal Medicine Cardiovascular Disease
DX: I25.10 Atherosclerotic heart disease of native coronary artery without angina pectoris (principal); I10 Essential (primary) hypertension
CPT/HCPCS: 93010; 99214

== ENCOUNTER → 2023-12-10 08:35 | Outpatient (BNVA) | payer MEDICARE, MEDICAID, SELFPAY | PROVIDERS: Visit Provider Internal Medicine Cardiovascular Disease | DX: I25.10 Atherosclerotic heart disease of native coronary artery without angina pectoris (principal); I10 Essential (primary) hypertension | CPT/HCPCS: 93005; 99212 ==

== ENCOUNTER 2024-04-02 08:21 | Outpatient (AMB) | payer MEDICARE, MEDICAID, SELFPAY ==
--- NOTE | 2024-04-02 08:31 | MHC.PC.OV ---
Vital Signs 04/02/24 08:34 Height 5 ft 11 in Weight 163 lb 2 oz BMI 22.7 BP 110/66 Blood Pressure Location Lt brachial Position Sitting Pulse 61 Pulse Source Pulse Oximeter Pulse Oximetry (%) 97 Oxygen Delivery Method Room Air Intake Visit Reasons: 6 month f/u Intake Note: Patient is here to follow up on CAD, PAD, HTN, HLD. 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 Required: No Manager Document Control: Not Required per policy Accompanied by: Self / Same As Patient Allergies bee pollen [Bee Stings] Allergy (Severe, Verified 04/02/24 08:34) Anaphylaxis Tobacco use date assessed: 04/02/24 Fall risk assessment: No Falls in past year Last assessed Fall Risk: 04/02/24 Dental Screening Dental Screen Date: 04/02/24 Did you have a dental visit in the last 12 months?: No Did you have a dental problem in the last 6 months where you did not have access to dental care?: No Was dental information given to patient?: No HPI 6 month f/u HPI Details 69-year-old male presents to the office to discuss his chronic medical conditions. Patient is at baseline state of health. Able to function and do activities of daily living. The thigh pain, that was bothering him in the previous visit has all subsided. Though he is retired, patient is very active and always doing small jobs. He is able to drive, drive at night. Able to manage his finances independently. No urinary incontinence. No gait abnormalities. [facility] Medical History Screening for eye condition Prostate cancer screening CAD (coronary artery disease) History of arteriography HTN (hypertension) PVD (peripheral vascular disease) Hyperlipidemia CVA (cerebral vascular accident) (~03/2018) Surgical History History of ldffo-lvydm-kyzhdsi bypass H/O colonoscopy Colonoscopy planned (~2009) Family History Father Cancer Mother CVD (cardiovascular disease) Obese Sister No problems noted. Son No problems noted. Son No problems noted. Social History Household Members: Spouse and Children Housing: House Are you a primary overnight caregiver to a significant other at home: No Do you presently have visiting nurse or other home services: No Alcohol intake: never Comment: asa feet pink and warm to touch Patient Tobacco Use Status: Former Tobacco user Tobacco use type: Cigarette Years Smoked: 30 +/- e-Cigarette/Vaping Use: Never Used Second Hand Smoke Exposure: No Substance Use Type: Marijuana service: No Current occupational status: retired Cognitive needs: No Hearing needs: No Vision needs: Yes (Glasses) Questionnaire PHQ-9 Over the last 2 weeks, how often have you been bothered by any of the following problems? 1. Little interest or pleasure in doing things: not at all 2. Feeling down, depressed, or hopeless: not at all 3. Trouble falling or staying asleep, or sleeping too much: not at all 4. Feeling tired or having little energy: not at all 5. Poor appetite or overeating: not at all 6. Feeling bad about yourself - or that you are a failure or have let yourself or your family down: not at all 7. Trouble concentrating on things, such as reading the newspaper or watching television: not at all 8. Moving or speaking so slowly that other people could have noticed. Or the opposite - being so fidgety or restless that you have been moving around a lot more than usual: not at all 9. Thoughts that you would be better off or of hurting yourself in some way: not at all Total score: 0 Depression Screening Interpretation: Negative Depression Screening Done: Yes Source: Developed by Drs. Julian Robert, Angella Uriarte, Rashel Barahona and colleagues, with an educational shayna from [employer] Thrive Questionnaire Date Thrive assessed: 04/02/24 I am a: Patient What is your living situation today?: I have a steady place to live Within the past 12 months, did the food you bought not last and you didn't have the money to get more?: Never true Within the past 12 months, did you worry whether your food would run out before you got money to buy more?: Never true Do you have trouble paying for medicines?: No Do you have trouble getting transportation to medical appointments?: No Do you have trouble paying your heating and electricity bill?: No Do you have trouble taking care of your child, family member or friend?: No Do you have trouble with day-to-day activities such as bathing, preparing meals, shopping, managing finances, etc.?: No Are you currently unemployed and looking for a job?: No Are you interested in more education?: No Currently or been in a relationship where the following occur: No concerns reported THRIVE Score: 0 AUDIT C Alcohol Use Questionnaire (AUDIT-C) 1. How often do you have a drink containing alcohol?: Never Total Score: 0 WELLINGTON-7 AMB Questionnaire WELLINGTON-7 Date WELLINGTON - 7 assessed: 04/02/24 Feeling nervous, anxious, or on edge: 0 = Not at all Not being able to stop or control worryin = Not at all Worrying too much about different things: 0 = Not at all Trouble relaxin = Not at all Being so restless that it is hard to sit still: 0 = Not at all Becoming easily annoyed or irritable: 0 = Not at all Feeling afraid as if something awful might happen: 0 = Not at all Total [place]-7 score (0-4 normal; 5-9 mild; 10-14 moderate; 15-21 severe): 0 Source: Developed by Drs. Julian Robert, Angella Uriarte, Rashel Barahona and colleagues, with an educational shayna from [employer] Physical exam (Primary Care) Vital Signs: Last Vital Signs Pulse 61 04/02/24 08:34 BP 110/66 04/02/24 08:34 Pulse Ox 97 04/02/24 08:34 Oxygen Delivery Method Room Air 04/02/24 08:34 Care Plan Goal for BP management: Blood pressure is in range. Continue current medications. BMI result Body Mass Index 22.7 Tobacco/Smoking Status: Tobacco use Status Tobacco use date assessed 04/02/24 04/02/24 08:38 Patient Tobacco Use Status Former Tobacco user 04/02/24 08:38 Tobacco use type Cigarette 04/02/24 08:38 e-Cigarette/Vaping Use Never Used 04/02/24 08:38 PHQ-9: PHQ-9 Score PHQ-9: Total score 0 04/02/24 08:38 Depression Screening Interpretation: Negative Thrive Assessment: Date of Thrive Assessment Date Thrive assessed 04/02/24 04/02/24 08:38 Currently or been in a relationship where the following occur: No concerns reported Advance Care Planning discussion: Exists, not on file Date of discussion: 04/02/24 Who was present: Patient Forms completed: Health Care Proxy Time spent: 1-15 minutes, not on file Actual minutes spent: 5 Const General: cooperative and healthy appearing Nutritional Appearance: well nourished Orientation/consciousness: patient oriented x3 Limitations: no limitations HENMT Head: Yes normal to inspection Eyes General: appearance normal, both eyes and all related structures Neck Neck: Yes normal visual inspection Chest Chest palpation & inspection: normal palpation of entire chest wall Resp Effort & Inspection: normal respiratory effort Neuro General: patient oriented x3 Assessment and Plan Assessment & Plan (1) CVA (cerebral vascular accident): Onset Date: ~03/2018 Comment: Left hemiparesis, followed by Dr. Jackson. total occlusion of the right internal carotid artery, no interventions performed Code(s): I63.9 - Cerebral infarction, unspecified Plan: Condition is stable. Able to function and do all activities of daily living. (2) PAD (peripheral artery disease): Comment: 09/06/2020 - femoral to femoral bypass Code(s): I73.9 - Peripheral vascular disease, unspecified Plan: Condition is stable. Patient is not smoking. Continue current medications. (3) HTN (hypertension): Code(s): I10 - Essential (primary) hypertension Qualifiers: Hypertension type: essential hypertension Qualified Code(s): I10 - Essential (primary) hypertension Plan: Blood pressure is in range. Continue current medications. Counseling on the importance of diet and exercise done. (4) Hyperlipidemia: Code(s): E78.5 - Hyperlipidemia, unspecified Qualifiers: Hyperlipidemia type: familial hypercholesterolemia Qualified Code(s): E78.01 - Familial hypercholesterolemia Plan: Blood work has been ordered. Will call with the results. Coding Level of Care Code Est Pt Level 4 (70740) Complex EM visit Add On G2211 Diagnoses CVA (cerebral vascular accident) I63.9 PAD (peripheral artery disease) I73.9 Essential hypertension I10 Hypertension type: essential hypertension Familial hypercholesterolemia E78.01 Hyperlipidemia type: familial hypercholesterolemia Additional Codes Vital Signs *Quality* - Advance Care Planning discussion: Exists, not on file ([id number]) Vital Signs *Quality* - Time spent: 1-15 minutes, not on file ([id number])
[2024-04-02 08:34] VITALS: BP 110/66; PULSE 61; O2SAT 97; BMI 22.7
== END 2024-04-02 08:49 | disposition home or self-care (01) ==
PROVIDERS: PCP Internal Medicine; Visit Provider Internal Medicine
DX: I73.9 Peripheral vascular disease, unspecified (principal); I69.354 Hemiplegia and hemiparesis following cerebral infarction affecting left non-dominant side; I10 Essential (primary) hypertension; E78.01 Familial hypercholesterolemia; Z00.00 Encounter for general adult medical examination without abnormal findings
CPT/HCPCS: 1124F; 99214; G2211

== ENCOUNTER 2024-04-04 06:30 | Outpatient (REF) | payer MEDICARE, MEDICAID, SELFPAY ==
[2024-04-04 07:05] LABS: Hematocrit 35.5 % (42.0-52.0); Hemoglobin 11.9 g/dl (14.0-18.0); Mean Corpuscular HGB Conc 33.5 g/dl (31.0-36.0); Mean Corpuscular Hemoglobin 30.9 pg (27.0-33.0); Mean Corpuscular Volume 92.2 fL (80.0-98.0); Platelet Count 262 X10*3/uL (160-400); Red Blood Count 3.85 X10*6/uL (4.60-5.80); Red Cell Distribution Width 14.9 % (11.0-16.0); White Blood Count 10.5 X10*3/uL (4.8-10.8)
[2024-04-04 07:31] LABS: Alanine Aminotransferase 17 U/L (0-40); Albumin Level 4.2 g/dL (3.5-5.0); Alkaline Phosphatase 63 U/L (39-117); Anion Gap 12 (12-20); Aspartate Amino Transferase 15 U/L (5-37); Bilirubin Direct 0.2 mg/dL (0.0-0.5); Bilirubin Total 0.4 mg/dL (0.0-1.0); Blood Urea Nitrogen 26 mg/dL (9-16); Calcium 9.8 mg/dL (8.4-10.2); Carbon Dioxide 24 mmol/L (22-29); Chloride 109 mmol/L (96-108); Cholesterol 121 mg/dL (<200); Estimated Glomerular Filt Rate 56; Glucose Random 108 mg/dL (60-115); HDL Cholesterol 34 mg/dL (>40); LDL Cholesterol Calculated 72 mg/dL (<100); Potassium 4.5 mmol/L (3.3-5.1); Sodium 140 mmol/L (135-145); Total Protein 7.5 g/dL (6.5-8.0); Triglycerides 77 mg/dL (<150)
[2024-04-04 07:47] LABS: Thyroid Stimulating Hormone 2.11 uIU/mL (0.32-4.0)
[2024-04-04 08:26] LABS: Appearance Urine Clear; Color Urine Yellow; Glucose Urine UA Negative (Negative); Leukocyte Esterase Urine Negative (Negative); Nitrite Urine Negative (Negative); PH 5.5 (5.0-9.0); Urine Blood Negative (Negative); Urine Ketones Negative (Negative); Urine Protein Negative (Neg-Trace)
== END 2024-04-04 06:31 | disposition home or self-care (01) ==
LOC: HO.LAB 06:30
PROVIDERS: PCP Internal Medicine; Visit Provider Internal Medicine
DX: E78.01 Familial hypercholesterolemia (principal); I10 Essential (primary) hypertension; Z86.73 Personal history of transient ischemic attack (TIA), and cerebral infarction without residual deficits
CPT/HCPCS: 36415; 80048; 80061; 80076; 81003; 84443; 85027

== ENCOUNTER 2024-08-04 10:18 | Outpatient (REF) | payer MEDICARE, MEDICAID, SELFPAY ==
--- NOTE | ~2024-08-04 | US_ITS ---
EXAMINATION: US EXTRACRANIAL CAROTID DUPLEX, BILATERAL CLINICAL INFORMATION: History of carotid occlusion. COMPARISON: 07/03/2023. TECHNIQUE: Real-time ultrasound and Doppler techniques (integrating B-mode 2-D vascular images, Doppler spectral analysis and color-flow Doppler imaging) were utilized to interrogate the extracranial carotid arteries, the vertebral arteries and proximal subclavian arteries bilaterally. The degree of stenosis is determined by criteria similar to NASCET. FINDINGS: Right Side: 1. There is heavily calcified plaque atherosclerotic plaque seen in the bifurcation/proximal ICA region. 2. The common carotid artery PSV proximally is 44 cm/s and distally 38 cm/s. 3. The internal carotid artery remains occluded. 4. The proximal external carotid artery PSV is 250 cm/s. 5. The vertebral artery shows antegrade flow. 6. The subclavian artery waveforms are normal. Left Side: 1. There is moderate atherosclerotic plaque seen in the bifurcation/proximal ICA region. 2. The common carotid artery PSV proximally is 104 cm/s and distally 70 cm/s. 3. The proximal internal carotid artery velocities are 193 cm/s systolic and 60 cm/s diastolic (previously 186/58). 4. The proximal external carotid artery PSV is 128 cm/s. 5. The vertebral artery shows antegrade flow. 6. The subclavian artery waveforms are normal. US/US carotid duplex BI IMPRESSION: 1. RIGHT : Chronic occlusion of the right ICA similar to prior study. 2. LEFT: Velocities in the left proximal ICA are 193, which ordinarily would BE considered a 50-79% stenosis; however, some of this elevated velocity may be due to increased flow secondary to right-sided occlusion. No significant interval change when compared to prior. 3. There is no change in the category severity of disease when compared to the previous study dated 07/03/2023. Electronically signed by: Zac Reagan MD 08/05/2024 12:54 PM [facility] [place]
--- NOTE | ~2024-08-04 | US_ITS ---
EXAMINATION: Noninvasive assessment of the bilateral lower extremities with ARTERIAL DUPLEX and ANKLE BRACHIAL INDICES (ABIs). CLINICAL INFORMATION: Peripheral vascular disease. History of right to left femorofemoral bypass graft TECHNIQUE: Duplex Doppler techniques with waveform analysis and measurement of velocities in the bilateral common femoral, profunda femoris, superficial femoral, popliteal and tibial arteries were performed. Additionally, ankle pulse volume recordings, ankle pressure measurements and ankle brachial indices were obtained of the lower extremity arterial system bilaterally. The study was performed only at rest. COMPARISON: 07/03/2023 FINDINGS: DIRECT DUPLEX DOPPLER FINDINGS: Right to left femorofemoral bypass graft is patent on color Doppler. Right anastomosis: 128 cm/s, biphasic Proximal bypass graft: 109 cm/s, biphasic Mid bypass graft: 61 cm/s, triphasic Distal bypass graft: 61 cm/s, triphasic Distal anastomosis: 83 cm/s, triphasic RIGHT LEG: Common femoral artery: 153, phasicity: Triphasic Profunda femoris artery: 183 cm/s, phasicity: Triphasic Superficial femoral artery (proximal): 110 cm/s, phasicity: Biphasic Superficial femoral artery (mid): 75.2 cm/s, phasicity: Triphasic Superficial femoral artery (distal): 112 cm/s, phasicity: Triphasic. Scattered calcified plaque Popliteal artery: 51.1 cm/s, phasicity: Biphasic. Scattered calcified plaque Posterior tibial artery: 45.4 cm/s, phasicity: Biphasic Peroneal artery: 25.9 cm/s, phasicity: Biphasic Anterior tibial artery: 44.3 cm/s, phasicity: Biphasic Dorsalis pedis artery: 46.5 cm/s, phasicity:Biphasic LEFT LEG: Common femoral artery: 54 cm/s, phasicity: Biphasic Profunda femoris artery: 147 cm/s, phasicity: Basic Superficial femoral artery (proximal): 153 cm/s, phasicity: Triphasic. Calcified plaque at the ostium Superficial femoral artery (mid): 79.9 cm/s, phasicity: Triphasic. Scattered calcified plaque Superficial femoral artery (distal): 124.2 cm/s, phasicity: Triphasic. Scattered calcified plaque Popliteal artery: 70.0 cm/s, phasicity: Triphasic. Scattered calcified plaque Posterior tibial artery: 38.0 cm/s, phasicity: Biphasic Peroneal artery: 32.6 cm/s, phasicity: Biphasic Anterior tibial artery: 54.1 cm/s, phasicity: Biphasic Dorsalis pedis artery: 29.6 cm/s, phasicity: Biphasic ANKLE-BRACHIAL INDEX: Right: 1.01, previously 0.99 Left: 0.91, previously 0.87 ANKLE PRESSURES: Right: PT 141, DP 136 Left: PT 127, DP 19 ANKLE PVR WAVEFORMS: Right: Mildly dampened Left: Mildly dampened US/US arterial duplex BI w/ KALINA IMPRESSION: 1. Patent right to left femorofemoral bypass graft. 2. Scattered calcified plaque in the bilateral lower extremities. No hemodynamically significant stenosis. 3. Normal ankle-brachial indices bilaterally. Electronically signed by: Aamir Dong MD 08/28/2024 09:12 AM [facility]
== END 2024-08-04 10:19 | disposition home or self-care (01) ==
LOC: HO.US 10:18
PROVIDERS: PCP Internal Medicine; Visit Provider Surgery Vascular Surgery
DX: I73.9 Peripheral vascular disease, unspecified (principal); I65.23 Occlusion and stenosis of bilateral carotid arteries
CPT/HCPCS: 93880; 93922; 93925

== ENCOUNTER 2024-08-28 08:45 | Outpatient (AMB) | payer MEDICARE, MEDICAID, SELFPAY ==
[2024-08-28 09:03] VITALS: BP 158/64; BMI 23.9
--- NOTE | 2024-08-28 09:03 | A.OFFVIS_ITS ---
Vital Signs 08/28/24 09:03 08/28/24 09:12 Height 5 ft 11 in Weight 171 lb 8 oz BMI 23.9 BP 158/64 H 144/62 H Blood Pressure Location Lt brachial Rt brachial Position Sitting Sitting Intake Visit Reasons: follow up s/p Carotid/Arterial US 08/04/24 Intake Note: 1 yr follow up carotid US and Arterial US bilateral LE 08/04/24. Pt states no issues w/ ambulation, dizziness or blurred vision. Hx of fem fem bypass 09/06/2020 Accompanied by: Self / Same As Patient Allergies bee pollen [Bee Stings] Allergy (Severe, Verified 08/28/24 09:08) Anaphylaxis HPI HPI follow up s/p Carotid/Arterial US 08/04/24: Details: Extremely pleasant 69-year-old gentleman presents for follow-up regarding peripheral vascular disease and carotid disease. He has a prior history of a fem-fem bypass. Reports no difficulty with his lower extremities. He was actually up fixing some shingles and doing some maryjo yesterday and was up and down a ladder multiple times with no difficulty. 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 He has no complaints in his doing extremely well. He is being maintained on aspirin and high-dose statin. [facility] Medical History Screening for eye condition Prostate cancer screening CAD (coronary artery disease) History of arteriography HTN (hypertension) PVD (peripheral vascular disease) Hyperlipidemia CVA (cerebral vascular accident) (~03/2018) Surgical History History of yrqrx-evfin-maimiar bypass H/O colonoscopy Colonoscopy planned (~2009) Family History Father Cancer Mother CVD (cardiovascular disease) Obese Sister No problems noted. Son No problems noted. Son No problems noted. Social History Household Members: Spouse and Children Housing: House Are you a primary care consultant to a significant other at home: No Do you presently have visiting nurse or other home services: No Alcohol intake: never Comment: asa feet pink and warm to touch Patient Tobacco Use Status: Former Tobacco user Tobacco use type: Cigarette Years Smoked: 30 +/- e-Cigarette/Vaping Use: Never Used Second Hand Smoke Exposure: No Substance Use Type: Marijuana service: No Current occupational status: retired Cognitive needs: No Hearing needs: No Vision needs: Yes (Glasses) Review of Systems Const All systems reviewed & are unremarkable except as noted in HPI and below Reports no additional complaints ENT Reports Normal hearing present Card Denies chest pain, Denies chest pain at rest, Denies chest pain with activity and Denies pedal edema Resp Denies cough GI Denies abdominal pain Musc Denies abnormal gait, Denies muscle cramps and Denies radiating pain into limb Skin/Breast Denies skin ulcer and Denies wounds Neuro Reports Normal hearing present and Denies abnormal gait Psych Reports no additional complaints Physical Exam Vital Signs: Last Vital Signs BP 144/62 H 08/28/24 09:12 BMI result Body Mass Index 23.9 Const General: cooperative, healthy appearing and comfortable Orientation/consciousness: oriented to person, oriented to place and oriented to time HEENT Head: Yes normal to inspection Neck Neck: Yes normal visual inspection Carotids: no bruits Chest Chest palpation & inspection: normal inspection of the chest Resp Effort & Inspection: normal respiratory effort and able to speak in complete sentences Auscultation: clear to auscultation bilaterally, no crackles, no rales, no rhonchi and no wheezes Cardio Rate: regular rate Rhythm: regular rhythm Heart sounds: S1 normal heart sound present and S2 normal heart sound present Bruits: no carotid bruits Peripheral pulses: Peripheral pulses 2+ throughout GI Inspection: Yes normal to inspection Skin Wounds: no wounds Hair: normal Neuro General: oriented to person, oriented to place and oriented to time Cranial nerves: Yes CN's II-XII intact bilaterally and Yes Normal hearing present Cognition (Neuro): normal cognition Motor exam (neuro): 5/5 motor strength present throughout Extrem Other: venous exam: No significant superficial varicosities or spider telangiectasias, minimal edema General: No clubbing, No cyanosis and No edema Psych Appearance: grossly normal Mental Status: mental status grossly normal Speech and movement: Normal speech and movement present Results Reviewed Results Reviewed: Noninvasive arterial testing dated 08/04/2024 demonstrates KALINA on the right of 1.01 and on the left of 0.91 with fem-fem bypass patent. Carotid testing dated 08/04/2024 demonstrates right side chronic occlusion left side 50-79% stenosis with a peak systolic of 193. Written report and images were reviewed. Assessment & Plan Assessment & Plan (1) PAD (peripheral artery disease): Comment: 09/06/2020 - femoral to femoral bypass Code(s): I73.9 - Peripheral vascular disease, unspecified Category: Medical Plan: In short patient has stable fem-fem bypass. I did review the pathophysiology of peripheral vascular disease with the patient. In addition we did discuss routine conservative measures including a healthy diet and the importance of exercise and ambulation. We did discuss risk factor modification. The patient will continue to to follow-up with surveillance follow-up in approximately 1 year. Thank you for allowing us to participate in this patient's care. If ther e are any questions or concerns please do not hesitate to contact us. (2) Bilateral carotid artery stenosis: Code(s): I65.23 - Occlusion and stenosis of bilateral carotid arteries Category: Medical Plan: In short patient has asymptomatic carotid disease. Known and stable occlusion We have reviewed signs and symptoms of a stroke. We also discussed risk factor modification inclusive a healthy diet low in cholesterol. The patient will follow up with us with surveillance ultrasound of the carotids 1 year. Should there be any changes or signs or symptoms of a stroke we will be happy to see them back sooner. Thank you for allowing us to participate in this patient's care. If there are any questions or concerns please do not hesitate to contact us. Orders: Orders US arterial duplex LE BI 1 Year I73.9 - Peripheral vascular disease, unspecified US carotid duplex BI 1 Year I65.23 - Occlusion and stenosis of bilateral carotid arteries Coding Level of Care Code Est Pt Level 4 (98701) Complex EM visit Add On G2211 Diagnoses PAD (peripheral artery disease) I73.9 Bilateral carotid artery stenosis I65.23
[2024-08-28 09:12] VITALS: BP 144/62
== END 2024-08-28 09:28 | disposition home or self-care (01) ==
PROVIDERS: PCP Internal Medicine; Visit Provider Surgery Vascular Surgery
DX: I73.9 Peripheral vascular disease, unspecified (principal); I65.23 Occlusion and stenosis of bilateral carotid arteries
CPT/HCPCS: 99214; G2211

== ENCOUNTER → 2024-08-28 08:45 | Outpatient (BNVA) | payer MEDICARE, MEDICAID, SELFPAY | PROVIDERS: PCP Internal Medicine; Visit Provider Surgery Vascular Surgery | DX: I73.9 Peripheral vascular disease, unspecified (principal); I65.23 Occlusion and stenosis of bilateral carotid arteries | CPT/HCPCS: 99212 ==

== ENCOUNTER 2024-10-09 07:50 | Outpatient (AMB) | payer MEDICARE, MEDICAID, SELFPAY ==
--- NOTE | 2024-10-09 08:06 | A.OFFPC_ITS ---
Vital Signs 10/09/24 08:07 Height 5 ft 11 in Weight 171 lb 2 oz BMI 23.9 BP 150/80 H Blood Pressure Location Lt brachial Position Sitting Pulse 63 Pulse Source Pulse Oximeter Temp 97.3 F Temp Source Skin Pulse Oximetry (%) 96 Oxygen Delivery Method Room Air Intake Visit Reasons: 6mth f/u Intake Note: Patient is here to follow up on CAD, HTN, HLD. Pt requesting for cologuard test. 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 Required: No Arts Manager: Not Required per policy Accompanied by: Self / Same As Patient Allergies bee pollen [Bee Stings] Allergy (Severe, Verified 10/09/24 08:07) Anaphylaxis Tobacco use date assessed: 10/09/24 Fall risk assessment: No Falls in past year Last assessed Fall Risk: 10/09/24 Dental Screening Dental Screen Date: 10/09/24 Did you have a dental visit in the last 12 months?: No Did you have a dental problem in the last 6 months where you did not have access to dental care?: No Was dental information given to patient?: No [facility] Medical History Screening for eye condition Prostate cancer screening CAD (coronary artery disease) History of arteriography HTN (hypertension) PVD (peripheral vascular disease) Hyperlipidemia CVA (cerebral vascular accident) (~03/2018) Surgical History History of hnuam-zphcv-aikiuhn bypass H/O colonoscopy Colonoscopy planned (~2009) Family History Father Cancer Mother CVD (cardiovascular disease) Obese Sister No problems noted. Son No problems noted. Son No problems noted. Social History Household Members: Spouse and Children Housing: House Are you a primary intensive care anaesthetist to a significant other at home: No Do you presently have visiting nurse or other home services: No Alcohol intake: never Comment: asa feet pink and warm to touch Patient Tobacco Use Status: Former Tobacco user Tobacco use type: Cigarette Years Smoked: 30 +/- e-Cigarette/Vaping Use: Never Used Second Hand Smoke Exposure: Yes Substance Use Type: Marijuana service: No Current occupational status: retired Cognitive needs: No Hearing needs: No Vision needs: Yes (Glasses) Questionnaire PHQ-9 Over the last 2 weeks, how often have you been bothered by any of the following problems? 1. Little interest or pleasure in doing things: not at all 2. Feeling down, depressed, or hopeless: not at all 3. Trouble falling or staying asleep, or sleeping too much: not at all 4. Feeling tired or having little energy: not at all 5. Poor appetite or overeating: not at all 6. Feeling bad about yourself - or that you are a failure or have let yourself or your family down: not at all 7. Trouble concentrating on things, such as reading the newspaper or watching television: not at all 8. Moving or speaking so slowly that other people could have noticed. Or the opposite - being so fidgety or restless that you have been moving around a lot more than usual: not at all 9. Thoughts that you would be better off or of hurting yourself in some way: not at all Total score: 0 Depression Screening Interpretation: Negative Depression Screening Done: Yes Source: Developed by Drs. Julian Robert, Angella Uriarte, Rashel Barahona and colleagues, with an educational shayna from [employer]. Thrive Questionnaire Date Thrive assessed: 10/09/24 I am a: Patient What is your living situation today?: I have a steady place to live Within the past 12 months, did the food you bought not last and you didn't have the money to get more?: Never true Within the past 12 months, did you worry whether your food would run out before you got money to buy more?: Never true Do you have trouble paying for medicines?: No Do you have trouble getting transportation to medical appointments?: No Do you have trouble paying your heating and electricity bill?: No Do you have trouble taking care of your child, family member or friend?: No Do you have trouble with day-to-day activities such as bathing, preparing meals, shopping, managing finances, etc.?: No Are you currently unemployed and looking for a job?: No Are you interested in more education?: No Please select the resources that you would like help with: None Currently or been in a relationship where the following occur: No concerns reported THRIVE Score: 0 AUDIT C Alcohol Use Questionnaire (AUDIT-C) 1. How often do you have a drink containing alcohol?: Never Total Score: 0 WELLINGTON-7 AMB Questionnaire WELLINGTON-7 Date WELLINGTON - 7 assessed: 04/02/24 Feeling nervous, anxious, or on edge: 0 = Not at all Not being able to stop or control worryin = Not at all Worrying too much about different things: 0 = Not at all Trouble relaxin = Not at all Being so restless that it is hard to sit still: 0 = Not at all Becoming easily annoyed or irritable: 0 = Not at all Feeling afraid as if something awful might happen: 0 = Not at all Total WELLINGTON-7 score (0-4 normal; 5-9 mild; 10-14 moderate; 15-21 severe): 0 Source: Developed by Drs. Julian Robert, Angella Uriarte, Rashel Barahona and colleagues, with an educational shayna from [email or web address]. Physical exam (Primary Care) Vital Signs: Last Vital Signs Temp 97.3 F 10/09/24 08:07 Pulse 63 10/09/24 08:07 BP 150/80 H 10/09/24 08:07 Pulse Ox 96 10/09/24 08:07 Oxygen Delivery Method Room Air 10/09/24 08:07 BMI result Body Mass Index 23.9 Tobacco/Smoking Status: Tobacco use Status Tobacco use date assessed 10/09/24 10/09/24 08:14 Patient Tobacco Use Status Former Tobacco user 10/09/24 08:14 Tobacco use type Cigarette 10/09/24 08:14 e-Cigarette/Vaping Use Never Used 10/09/24 08:14 PHQ-9: PHQ-9 Score PHQ-9: Total score 0 10/09/24 08:14 Depression Screening Interpretation: Negative Thrive Assessment: Date of Thrive Assessment Date Thrive assessed 10/09/24 10/09/24 08:14 Currently or been in a relationship where the following occur: No concerns reported Coding Level of Care Code Est Pt Level 4 (10542) Complex EM visit Add On G2211 Diagnoses Essential hypertension I10 Hypertension type: essential hypertension Assessment & Plan Assessment & Plan (1) HTN (hypertension): Code(s): I10 - Essential (primary) hypertension Category: Medical Qualifiers: Hypertension type: essential hypertension Qualified Code(s): I10 - Essential (primary) hypertension Plan: Medications have been ordered again. BW ordered. Plan History of Present Illness The patient is a 69-year-old male presenting with concern regarding management of his essential hypertension. The patient reports that he has not taken his prescribed blood pressure medications for over a month. This interruption in medication adherence occurred because his prescriptions, which were supposed to be automatically refilled, did not process correctly at his pharmacy, [facility]. Specifically, the patient takes valsartan at a 40 mg dose, which recently got lost in the refill process. Additionally, he has not taken his hydrochlorothiazide for approximately one year due to similar issues with obtaining the medication. He has since maintained adherence to his statin medication regimen without difficulty. The patient acknowledges no immediate adverse symptoms associated with his uncontrolled hypertension, although he is aware that his blood pressure levels are elevated. Social History - The patient denies smoking. - He engages in regular exercise. - He prefers to go to bed early. - He does not drive at night. Review of Systems - Cardiovascular: Reports elevated blood pressure. - Ophthalmologic: Denies halos around lights. Physical Exam General: Cooperative and healthy appearing Nutritional Appearance: Well nourished Orientation/consciousness: Patient oriented x3 Limitations: No limitations Head: Normal to inspection General: Appearance normal, both eyes and all related structures Neck: Normal visual inspection Chest: Normal palpation of entire chest wall Respiratory: Normal respiratory effort Neurology: Patient oriented x3 Results Plan - Send scripts for essential hypertension medications valsartan and hydrochlorothiazide to [facility]. - Ensure prescriptions are set for automatic 90-day refills with one refill option. - Order blood work, instructing the patient to undergo this after returning from travel, with fasting. Patient was informed and verbally consented to the use of an ambient scribe for clinic note documentation during this visit. Discussion Notes I confirmed with the patient the importance of strict adherence to his prescribed antihypertensive medications, valsartan and hydrochlorothiazide, to control his blood pressure effectively and reduce the risk of complications associated with hypertension. I clarified that his current prescription issues with [facility] would be addressed, providing fresh scripts with a 90-day automatic refill procedure. I also emphasized the importance of fasting before undergoing the blood work after his upcoming travel. We agreed on a follow-up interval of six months unless issues arise sooner, ensuring continued monitoring and adjustment of his treatment as necessary. Patient Instructions - Begin taking valsartan and hydrochlorothiazide as prescribed once obtained from the pharmacy. - Wait until returning from travel to complete fasting blood work. - Continue maintaining healthy lifestyle choices, including regular exercise and avoiding nighttime driving. - Return for follow-up in six months or sooner if symptoms or concerns arise. - Report any difficulty in obtaining medications immediately. Orders: Orders Complete Blood Count no Diff 10/20/24 I10 - Essential (primary) hypertension Basic Metabolic Panel 10/20/24 I10 - Essential (primary) hypertension Liver Panel 10/20/24 I10 - Essential (primary) hypertension Lipid Panel 10/20/24 I10 - Essential (primary) hypertension Thyroid Stimulating Hormone 10/20/24 I10 - Essential (primary) hypertension UA and rflx microscopic 10/20/24 I10 - Essential (primary) hypertension Medications: Refilled valsartan 40 mg PO DAILY 90 tabs 1RF hydrochlorothiazide 12.5 mg PO DAILY 90 tabs 1RF
[2024-10-09 08:07] VITALS: BP 150/80; PULSE 63; TEMP 36.3; O2SAT 96; BMI 23.9
== END 2024-10-09 08:44 | disposition home or self-care (01) ==
PROVIDERS: PCP Internal Medicine; Visit Provider Internal Medicine
DX: I10 Essential (primary) hypertension (principal)

== ENCOUNTER → 2024-10-09 07:50 | Outpatient (BNVA) | payer MEDICARE, MEDICAID, SELFPAY | PROVIDERS: PCP Internal Medicine; Visit Provider Internal Medicine | DX: I10 Essential (primary) hypertension (principal) | CPT/HCPCS: 99212 ==

== ENCOUNTER 2024-10-20 06:53 | Outpatient (REF) | payer MEDICARE, MEDICAID, SELFPAY ==
[2024-10-20 07:40] LABS: Hematocrit 39.6 % (42.0-52.0); Hemoglobin 13.2 g/dl (14.0-18.0); Mean Corpuscular HGB Conc 33.3 g/dl (31.0-36.0); Mean Corpuscular Hemoglobin 30.2 pg (27.0-33.0); Mean Corpuscular Volume 90.6 fL (80.0-98.0); Mean Platelet Volume 9.9 fL (9.4-12.4); Platelet Count 281 X10*3/uL (160-400); Red Blood Count 4.37 X10*6/uL (4.60-5.80); Red Cell Distribution Width 14.6 % (11.0-16.0); White Blood Count 10.8 X10*3/uL (4.8-10.8)
[2024-10-20 07:42] LABS: Appearance Urine Clear; Color Urine Yellow; Glucose Urine UA Negative (Negative); Leukocyte Esterase Urine Negative (Negative); Nitrite Urine Negative (Negative); PH 6.5 (5.0-9.0); Specific Gravity - Urine 1.015 (1.005-1.025); Urine Blood Negative (Negative); Urine Ketones Negative (Negative); Urine Protein Negative (Neg-Trace)
[2024-10-20 08:15] LABS: Alanine Aminotransferase 23 U/L (0-40); Albumin Level 4.3 g/dL (3.5-5.0); Alkaline Phosphatase 75 U/L (39-117); Anion Gap 10 (12-20); Aspartate Amino Transferase 21 U/L (5-37); Bilirubin Direct 0.2 mg/dL (0.0-0.5); Bilirubin Total 0.5 mg/dL (0.0-1.0); Blood Urea Nitrogen 22 mg/dL (9-16); Calcium 9.2 mg/dL (8.4-10.2); Carbon Dioxide 28 mmol/L (22-29); Chloride 105 mmol/L (96-108); Cholesterol 134 mg/dL (<200); Estimated Glomerular Filt Rate 55; Glucose Random 109 mg/dL (60-115); HDL Cholesterol 35 mg/dL (>40); LDL Cholesterol Calculated 79 mg/dL (<100); Magnesium 2.4 mg/dL (1.6-2.6); Potassium 4.2 mmol/L (3.3-5.1); Sodium 139 mmol/L (135-145); Triglycerides 101 mg/dL (<150)
[2024-10-20 08:30] LABS: Thyroid Stimulating Hormone 4.05 uIU/mL (0.32-4.0)
[2024-10-24 16:29] LABS: Aldolase 4.1 U/L (<=8.1)
== END 2024-10-20 06:54 | disposition home or self-care (01) ==
LOC: HO.LAB 06:53
PROVIDERS: Absent Provider Registered Nurse; PCP Internal Medicine; Visit Provider Internal Medicine
DX: R25.2 Cramp and spasm (principal); I10 Essential (primary) hypertension
CPT/HCPCS: 36415; 80048; 80061; 80076; 81003; 82085; 82550; 83735; 84100; 84443; 85027

== ENCOUNTER 2024-10-22 06:46 | Outpatient (REF) | payer MEDICARE, MEDICAID, SELFPAY ==
[2024-10-22 08:41] LABS: TSH reflex Free T4 3.35 uIU/mL (0.32-4.0)
== END 2024-10-22 06:47 | disposition home or self-care (01) ==
LOC: HO.LAB 06:46
PROVIDERS: PCP Internal Medicine; Visit Provider Physician Assistant Medical
DX: R79.89 Other specified abnormal findings of blood chemistry (principal)
CPT/HCPCS: 36415; 83970; 84443

== ENCOUNTER 2024-12-08 08:31 | Outpatient (AMB) | payer MEDICARE, MEDICAID, SELFPAY ==
[2024-12-08 08:37] VITALS: BP 120/74; PULSE 71; BMI 24.0
--- NOTE | 2024-12-08 08:37 | MHC.OFFVIS ---
Vital Signs 12/08/24 08:37 Height 5 ft 11 in Weight 171 lb 15.369 oz BMI 24.0 BP 120/74 Blood Pressure Location Lt brachial Position Sitting Pulse 71 Intake Visit Reasons: 1 yr f/up Intake Note: 1 year follow-up with ekg feeling good Ssis Etl Developer Required: No Allergies bee pollen [Bee Stings] Allergy (Severe, Verified 10/09/24 08:07) Anaphylaxis Medication List - Last Reconciled 12/08/24 by Carmine Beauchamp MD aspirin 81 mg PO DAILY atorvastatin 80 mg PO DAILY epinephrine (EpiPen 2-Grzegorz) 0.3 mg (0.3 mL) IM Q10M PRN gabapentin 300 mg PO TID hydrochlorothiazide 12.5 mg PO DAILY rivaroxaban (Xarelto) 2.5 mg PO BID valsartan 40 mg PO DAILY HPI Comments Details: Darrian comes for cardiac follow-up. He has no active cardiac symptoms. He remains pretty active from cardiac perspective. Denies any exertional chest pain or shortness of breath. Denies any symptoms of claudication. Takes all his medications. Denies any lightheadedness, syncope. No prolonged palpitation irregular heartbeat. No shortness of breath, orthopnea, PND. His LDL last was 79 mg/dL, not well optimized [facility] Medical History Encounter for colorectal cancer screening using Cologuard test (10/28/24) Screening for eye condition Prostate cancer screening CAD (coronary artery disease) History of arteriography HTN (hypertension) PVD (peripheral vascular disease) Hyperlipidemia CVA (cerebral vascular accident) (~03/2018) Surgical History History of evnqd-vpmqd-tckivid bypass H/O colonoscopy Colonoscopy planned (~2009) Family History Father Cancer Mother CVD (cardiovascular disease) Obese Sister No problems noted. Son No problems noted. Son No problems noted. Social History Household Members: Spouse and Children Housing: House Are you a primary health care consultant to a significant other at home: No Do you presently have visiting nurse or other home services: No Alcohol intake: never Comment: asa feet pink and warm to touch Patient Tobacco Use Status: Former Tobacco user Tobacco use type: Cigarette Years Smoked: 30 +/- e-Cigarette/Vaping Use: Never Used Second Hand Smoke Exposure: Yes Substance Use Type: Marijuana service: No Current occupational status: retired Cognitive needs: No Hearing needs: No Vision needs: Yes (Glasses) Review of Systems Const Denies chills, Denies fatigue, Denies fever(s), Denies frequent falls, Denies weakness, Denies weight gain and Denies weight loss ENT Denies dizziness Card Denies chest pain, Denies leg edema, Denies lightheadedness, Denies palpitations, Denies dyspnea, Denies dyspnea on exertion, Denies orthopnea and Denies other (loss of consciousness) Resp Denies cough, Denies dyspnea and Denies dyspnea on exertion GI Denies hematochezia and Denies change in stool character Musc Denies abnormal gait, Denies muscle weakness, Denies numbness, Denies radiating pain into limb and Denies tingling Neuro Denies abnormal gait, Denies dizziness, Denies frequent falls, Denies numbness, Denies tingling and Denies weakness Endo Denies fatigue and Denies palpitations Physical Exam Vital Signs: Last Vital Signs Pulse 71 12/08/24 08:37 BP 120/74 12/08/24 08:37 BMI result Body Mass Index 24.0 Const General: cooperative, comfortable, no acute distress, alert and awake Nutritional Appearance: thin Orientation/consciousness: patient oriented x3 Limitations: no limitations Neck Neck: Yes trachea midline, Yes supple and Yes no JVD Chest Chest palpation & inspection: normal inspection of the chest Resp Effort & Inspection: normal respiratory effort Auscultation: no rales, no wheezes and diminished lung sounds Cardio Jugular venous distension: no JVD Palpation: normal PMI Rate: regular rate Rhythm: regular rhythm Heart sounds: S1 normal heart sound present and S2 normal heart sound present Skin General skin exam: no rashes or lesions noted Neuro General: patient oriented x3 and no focal motor deficits Extrem General: Yes no clubbing, cyanosis or edema Psych Appearance: grossly normal Office Procedures EKG Details: EKG shows normal sinus rhythm normal EKG [id number], Complete Assessment & Plan Assessment & Plan (1) CAD (coronary artery disease): Code(s): I25.10 - Atherosclerotic heart disease of [place] coronary artery without angina pectoris Category: Medical Plan: Diffuse and significant vascular disease including CAD. No current symptoms suggestive of angina. No further cardiac workup is indicated. Continue aggressive blood pressure control. See below. Lipids are not well optimized. Target goal LDL closer to 55 mg/dL. Advised lipid panel in 2 months time. May need ezetimibe therapy. Continue aspirin and low-dose oral anticoagulation therapy. (2) HTN (hypertension): Code(s): I10 - Essential (primary) hypertension Category: Medical Qualifiers: Hypertension type: essential hypertension Qualified Code(s): I10 - Essential (primary) hypertension Plan: Hypertension which is currently well optimized on current medication. Importance of good blood pressure control was discussed. Understands agrees. Continue current therapy. Low-salt diet was discussed. Advised to maintain activity level as tolerated. Will follow up in the clinic in 1 year's time, sooner p.r.n.. Thank you for allowing me to partake in his care Orders: Orders Lipid Panel 2 Months I25.10 - Atherosclerotic heart disease of [place] coronary artery without angina pectoris Coding Level of Care Code Est Pt Level 4 (70925) Complex EM visit Add On G2211 Diagnoses CAD (coronary artery disease) I25.10 Essential hypertension I10 Hypertension type: essential hypertension CPT Codes EKG - CPT: 02874-[id number], Complete ([id number])
== END 2024-12-08 08:56 | disposition home or self-care (01) ==
LOC: HO.HCS 08:32
PROVIDERS: PCP Internal Medicine; Visit Provider Internal Medicine Cardiovascular Disease
DX: I25.10 Atherosclerotic heart disease of native coronary artery without angina pectoris (principal); I10 Essential (primary) hypertension
CPT/HCPCS: 93010; 99214; G2211

== ENCOUNTER → 2024-12-08 08:31 | Outpatient (BNVA) | payer MEDICARE, MEDICAID, SELFPAY | PROVIDERS: PCP Internal Medicine; Visit Provider Internal Medicine Cardiovascular Disease | DX: I25.10 Atherosclerotic heart disease of native coronary artery without angina pectoris (principal); I10 Essential (primary) hypertension | CPT/HCPCS: 93005; 99212 ==

== ENCOUNTER 2025-02-05 06:49 | Outpatient (REF) | payer MEDICARE, MEDICAID, SELFPAY ==
[2025-02-05 07:38] LABS: Cholesterol 118 mg/dL (<200); HDL Cholesterol 36 mg/dL (>40); LDL Cholesterol Calculated 67 mg/dL (<100); Triglycerides 78 mg/dL (<150)
== END 2025-02-05 06:50 | disposition home or self-care (01) ==
LOC: HO.LAB 06:49
PROVIDERS: PCP Internal Medicine; Visit Provider Internal Medicine Cardiovascular Disease
DX: I25.10 Atherosclerotic heart disease of native coronary artery without angina pectoris (principal)
CPT/HCPCS: 36415; 80061

== ENCOUNTER 2025-04-09 07:49 | Outpatient (AMB) | payer MEDICARE, MEDICAID, SELFPAY ==
[2025-04-09 08:06] VITALS: BP 136/70; PULSE 58; TEMP 36.2; O2SAT 95; BMI 22.6
--- NOTE | 2025-04-09 08:06 | A.OFFPC_ITS ---
Vital Signs 04/09/25 08:06 Height 5 ft 11 in Weight 162 lb 2 oz BMI 22.6 BP 136/70 Blood Pressure Location Lt brachial Position Sitting Pulse 58 Pulse Source Pulse Oximeter Temp 97.2 F Temp Source Temporal Artery Scan Pulse Oximetry (%) 95 Oxygen Delivery Method Room Air Intake Visit Reasons: 6mth f/u Allergies bee pollen (Bee Stings) Allergy (Severe, Verified 04/09/25 08:08) Anaphylaxis Tobacco use date assessed: 04/09/25 Fall risk assessment: No Falls in past year Last assessed Fall Risk: 04/09/25 Dental Screening Dental Screen Date: 10/09/24 Did you have a dental visit in the last 12 months?: No Did you have a dental problem in the last 6 months where you did not have access to dental care?: No Was dental information given to patient?: Patient declined [facility] Medical History Encounter for colorectal cancer screening using Cologuard test (10/28/24) Screening for eye condition Prostate cancer screening CAD (coronary artery disease) History of arteriography HTN (hypertension) PVD (peripheral vascular disease) Hyperlipidemia CVA (cerebral vascular accident) (~03/2018) Surgical History History of xgcti-amvbb-yrghlzd bypass H/O colonoscopy Colonoscopy planned (~2009) Family History Father Cancer Mother CVD (cardiovascular disease) Obese Sister No problems noted. Son No problems noted. Son No problems noted. Social History Household Members: Spouse and Children Housing: House Are you a primary day care provider to a significant other at home: No Do you presently have visiting nurse or other home services: No Alcohol intake: never Comment: asa feet pink and warm to touch Patient Tobacco Use Status: Former Tobacco user Tobacco use type: Cigarette Years Smoked: 30 +/- e-Cigarette/Vaping Use: Never Used Second Hand Smoke Exposure: Yes Substance Use Type: Marijuana service: No Current occupational status: retired Cognitive needs: No Hearing needs: No Vision needs: Yes (Glasses) Questionnaire PHQ-9 Over the last 2 weeks, how often have you been bothered by any of the following problems? 1. Little interest or pleasure in doing things: not at all 2. Feeling down, depressed, or hopeless: not at all 3. Trouble falling or staying asleep, or sleeping too much: not at all 4. Feeling tired or having little energy: not at all 5. Poor appetite or overeating: not at all 6. Feeling bad about yourself - or that you are a failure or have let yourself or your family down: not at all 7. Trouble concentrating on things, such as reading the newspaper or watching television: not at all 8. Moving or speaking so slowly that other people could have noticed. Or the opposite - being so fidgety or restless that you have been moving around a lot more than usual: not at all 9. Thoughts that you would be better off or of hurting yourself in some way: not at all Total score: 0 Depression Screening Interpretation: Negative Depression Screening Done: Yes Source: Developed by Drs. Julian Robert, Angella Uriarte, Rashel Barahona and colleagues, with an educational shayna from [employer] Thrive Questionnaire Date Thrive assessed: 10/09/24 I am a: Patient What is your living situation today?: I have a steady place to live Within the past 12 months, did the food you bought not last and you didn't have the money to get more?: Never true Within the past 12 months, did you worry whether your food would run out before you got money to buy more?: Never true Do you have trouble paying for medicines?: No Do you have trouble getting transportation to medical appointments?: No Do you have trouble paying your heating and electricity bill?: No Do you have trouble taking care of your child, family member or friend?: No Do you have trouble with day-to-day activities such as bathing, preparing meals, shopping, managing finances, etc.?: No Are you currently unemployed and looking for a job?: No Are you interested in more education?: No Please select the resources that you would like help with: None Currently or been in a relationship where the following occur: No concerns reported THRIVE Score: 0 AUDIT C Alcohol Use Questionnaire (AUDIT-C) 1. How often do you have a drink containing alcohol?: Never 3. How often do you have six or more drinks on one occasion?: Never Total Score: 0 WELLINGTON-7 AMB Questionnaire WELLINGTON-7 Date WELLINGTON - 7 assessed: 10/09/24 Feeling nervous, anxious, or on edge: 0 = Not at all Not being able to stop or control worryin = Not at all Worrying too much about different things: 0 = Not at all Trouble relaxin = Not at all Being so restless that it is hard to sit still: 0 = Not at all Becoming easily annoyed or irritable: 0 = Not at all Feeling afraid as if something awful might happen: 0 = Not at all Total WELILNGTON-7 score (0-4 normal; 5-9 mild; 10-14 moderate; 15-21 severe): 0 Source: Developed by Drs. Julian Robert, Angella Uriarte, Rashel Barahona and colleagues, with an educational shayna from [employer] Physical exam (Primary Care) Vital Signs: Last Vital Signs Temp 97.2 F 04/09/25 08:06 Pulse 58 04/09/25 08:06 BP 136/70 04/09/25 08:06 Pulse Ox 95 04/09/25 08:06 Oxygen Delivery Method Room Air 04/09/25 08:06 BMI result Body Mass Index 22.6 Tobacco/Smoking Status: Tobacco use Status Tobacco use date assessed 10/09/24 10/09/24 08:14 Patient Tobacco Use Status Former Tobacco user 10/09/24 08:14 Tobacco use type Cigarette 10/09/24 08:14 e-Cigarette/Vaping Use Never Used 10/09/24 08:14 Depression Screening Interpretation: Negative Thrive Assessment: Date of Thrive Assessment Date Thrive assessed 10/09/24 10/09/24 08:14 Currently or been in a relationship where the following occur: No concerns reported Coding Level of Care Code Est Pt Level 4 (10859) Complex EM visit Add On G2211 Diagnoses Essential hypertension I10 Hypertension type: essential hypertension PAD (peripheral artery disease) I73.9 Bilateral carotid artery stenosis I65.23 Familial hypercholesterolemia E78.01 Hyperlipidemia type: familial hypercholesterolemia CVA (cerebral vascular accident) I63.9 Assessment & Plan Assessment & Plan (1) HTN (hypertension): Code(s): I10 - Essential (primary) hypertension Category: Medical Qualifiers: Hypertension type: essential hypertension Qualified Code(s): I10 - Essential (primary) hypertension Plan: BP in range (2) PAD (peripheral artery disease): Comment: 09/06/2020 - femoral to femoral bypass Code(s): I73.9 - Peripheral vascular disease, unspecified Category: Medical Plan: Condition is stable. Not smoking. (3) Bilateral carotid artery stenosis: Code(s): I65.23 - Occlusion and stenosis of bilateral carotid arteries Category: Medical Plan: Condition is stable (4) Hyperlipidemia: Code(s): E78.5 - Hyperlipidemia, unspecified Category: Medical Qualifiers: Hyperlipidemia type: familial hypercholesterolemia Qualified Code(s): E78.01 - Familial hypercholesterolemia Plan: LDL in range (5) CVA (cerebral vascular accident): Onset Date: ~03/2018 Comment: Left hemiparesis, followed by Dr. Jackson. total occlusion of the right internal carotid artery, no interventions performed Code(s): I63.9 - Cerebral infarction, unspecified Category: Medical Plan: Stable Plan History of Present Illness - The patient is a 70-year-old male presenting with a routine wellness visit and management of chronic conditions. - Essential Hypertension: The patient is taking valsartan and hydrochlorothiazide for blood pressure management, with reports of well- controlled blood pressure. - Hyperlipidemia: The patient is on medication for cholesterol management, with recent blood work indicating normal levels. - Preventative Care: The patient undergoes routine blood work every six months, with the next test being a fasting blood test. - The patient has completed advanced care directives and healthcare proxies. 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 - Substance Use: The patient denies smoking. Review of Systems - Cardiovascular: Denies chest pain or palpitations. - Respiratory: Denies dyspnea or cough. - Neurological: Denies headaches or dizziness. - Ophthalmologic: Denies visual disturbances or halos. - Auditory: Denies hearing loss or tinnitus. Physical Exam General: Cooperative and healthy appearing Nutritional Appearance: Well nourished Orientation/consciousness: Patient oriented x3 Limitations: No limitations Head: Normal to inspection General: Appearance normal, both eyes and all related structures Neck: Normal visual inspection Chest: Normal palpation of entire chest wall Respiratory: N ormal respiratory effort Neurology: Patient oriented x3, no issues with vision or hearing, no pain reported. Results - Labs: Blood work for cholesterol in January showed normal levels. Plan 1. Essential Hypertension - Continue current medications: valsartan and hydrochlorothiazide. - Monitor blood pressure regularly. 2. Hyperlipidemia - Continue current cholesterol medication. - Routine blood work to monitor cholesterol levels. 3. Preventative Care - Schedule fasting blood test for routine monitoring. - Maintain advanced care directives and healthcare proxies. Discussion Notes During the visit, we discussed the importance of continuing current medications for hypertension and hyperlipidemia. We also reviewed the need for routine blood work every six months to monitor cholesterol levels and ensure overall health maintenance. The patient was reminded to schedule a fasting blood test and to maintain his advanced care directives and healthcare proxies. Patient Instructions - Continue taking valsartan and hydrochlorothiazide as prescribed. - Continue cholesterol medication as prescribed. - Schedule and complete fasting blood test for routine monitoring. - Maintain advanced care directives and healthcare proxies.
== END 2025-04-09 08:15 | disposition home or self-care (01) ==
LOC: HO.HMCH 07:50
PROVIDERS: PCP Internal Medicine; Visit Provider Internal Medicine
DX: I10 Essential (primary) hypertension (principal); I73.9 Peripheral vascular disease, unspecified; I65.23 Occlusion and stenosis of bilateral carotid arteries; E78.01 Familial hypercholesterolemia; I63.9 Cerebral infarction, unspecified

== ENCOUNTER → 2025-04-09 07:49 | Outpatient (BNVA) | payer MEDICARE, MEDICAID, SELFPAY | PROVIDERS: PCP Internal Medicine; Visit Provider Internal Medicine | DX: I10 Essential (primary) hypertension (principal); I73.9 Peripheral vascular disease, unspecified; I65.23 Occlusion and stenosis of bilateral carotid arteries; E78.01 Familial hypercholesterolemia; I63.9 Cerebral infarction, unspecified | CPT/HCPCS: 99212 ==

== ENCOUNTER 2025-04-10 06:45 | Outpatient (REF) | payer MEDICARE, MEDICAID, SELFPAY ==
[2025-04-10 07:44] LABS: Hematocrit 33.9 % (42.0-52.0); Hemoglobin 11.4 g/dl (14.0-18.0); Mean Corpuscular HGB Conc 33.6 g/dl (31.0-36.0); Mean Corpuscular Hemoglobin 30.6 pg (27.0-33.0); Mean Corpuscular Volume 91.1 fL (80.0-98.0); NRBC Abs Auto 0.000 X10*3/uL (0.0-0.012); NRBC Pct Auto 0.0 /100WBC (0.0-0.2); Platelet Count 260 X10*3/uL (160-400); Red Blood Count 3.72 X10*6/uL (4.60-5.80); White Blood Count 10.6 X10*3/uL (4.8-10.8)
[2025-04-10 07:59] LABS: Appearance Urine Clear; Glucose Urine UA Negative (Negative); PH 6.0 (5.0-9.0); Specific Gravity - Urine 1.020 (1.005-1.025)
[2025-04-10 08:05] LABS: Alanine Aminotransferase 20 U/L (0-40); Albumin Level 4.3 g/dL (3.5-5.0); Alkaline Phosphatase 65 U/L (39-117); Anion Gap 13 (12-20); Aspartate Amino Transferase 30 U/L (5-37); Blood Urea Nitrogen 26 mg/dL (9-16); Calcium 9.3 mg/dL (8.4-10.2); Carbon Dioxide 24 mmol/L (22-29); Chloride 107 mmol/L (96-108); Cholesterol 116 mg/dL (<200); Estimated Glomerular Filt Rate > 60; HDL Cholesterol 32 mg/dL (>40); Potassium 3.9 mmol/L (3.3-5.1); Sodium 140 mmol/L (135-145); Total Protein 7.4 g/dL (6.5-8.0); Triglycerides 105 mg/dL (<150)
[2025-04-10 08:20] LABS: Thyroid Stimulating Hormone 2.47 uIU/mL (0.32-4.0)
== END 2025-04-10 06:46 | disposition home or self-care (01) ==
LOC: HO.LAB 06:45
PROVIDERS: PCP Internal Medicine; Visit Provider Internal Medicine
DX: I10 Essential (primary) hypertension (principal); I25.10 Atherosclerotic heart disease of native coronary artery without angina pectoris; Z12.5 Encounter for screening for malignant neoplasm of prostate
CPT/HCPCS: 36415; 80048; 80061; 80076; 81003; 84153; 84443; 85027

== ENCOUNTER 2025-08-25 14:22 | Outpatient (REF) | payer MEDICARE, MEDICAID, SELFPAY ==
--- NOTE | ~2025-08-25 | US_ITS ---
EXAMINATION: US EXTRACRANIAL CAROTID DUPLEX, BILATERAL CLINICAL INFORMATION: I65 .23. Occluded right internal carotid artery. COMPARISON: August 04, 2024 TECHNIQUE: Real-time ultrasound and Doppler techniques (integrating B-mode 2-D vascular images, Doppler spectral analysis and color-flow Doppler imaging) were utilized to interrogate the extracranial carotid arteries, the vertebral arteries and proximal subclavian arteries bilaterally. The degree of stenosis is determined by criteria similar to NASCET. FINDINGS: Right Side: 1. There is irregular shaped mixed atherosclerotic plaque seen in the bifurcation/proximal ICA region. 2. The common carotid artery PSV proximally is 54 cm/s and distally 49 cm/s. 3. The proximal internal carotid artery is occluded, old/chronic. 4. The proximal external carotid artery PSV is 316 cm/s. 5. The vertebral artery shows antegrade flow. 6. The subclavian artery waveforms are normal. Left Side: 1. There is irregular shaped mixed atherosclerotic plaque seen in the bifurcation/proximal ICA region. 2. The common carotid artery PSV proximally is 130 cm/s and distally 118 cm/s. 3. The proximal internal carotid artery velocities are 239 cm/s systolic and 76 cm/s diastolic. 4. The proximal external carotid artery PSV is 168 cm/s. 5. The vertebral artery shows antegrade flow. 6. The subclavian artery waveforms are normal. ICA/CCA ratio: 1.8 US/US carotid duplex BI IMPRESSION: 1. RIGHT: Occluded right ICA, chronic/old. 2. LEFT: Irregular shaped mixed plaque representing 50-79% stenosis by ultrasound criteria. Electronically signed by: Humberto Radford MD 08/26/2025 06:47 AM EST
--- NOTE | ~2025-08-25 | US_ITS ---
EXAMINATION: Noninvasive assessment of the bilateral lower extremities with ARTERIAL DUPLEX, ANKLE BRACHIAL INDICES (ABIs), and PULSE VOLUME RECORDINGS (PVRs). CLINICAL INFORMATION: I 73.9 TECHNIQUE: Duplex Doppler techniques with waveform analysis and measurement of velocities in the bilateral common femoral, profunda femoris, superficial femoral, popliteal and tibial arteries were performed. Additionally, ankle pulse volume recordings, ankle pressure measurements and ankle brachial indices were obtained of the lower extremity arterial system bilaterally. The study was performed only at rest. COMPARISON: August 04, 2024 FINDINGS: DIRECT DUPLEX DOPPLER FINDINGS: Ikylf-ir-rnaf femoral-femoral bypass graft: Normal patency. Inflow artery: 173 cm/s. Triphasic waveform. Proximal anastomosis: 184 cm/s. Monophasic waveform. Proximal BP cm/s. Biphasic waveform. Mid BP cm/s. Biphasic waveform. Distal BP cm/s . Biphasic waveform. Distal anastomosis: 107 cm/s. Triphasic waveform. Spectral broadening. Outflow artery: 82 cm/s. Monophasic waveform. Spectral broadening. RIGHT LEG: Common femoral artery: 173 cm/s, phasicity: Biphasic. Spectral broadening. Profunda femoris artery: 157 cm/s, phasicity: Biphasic . Spectral broadening. Superficial femoral artery (proximal): 137 cm/s, phasicity: Monophasic. Spectral broadening. Superficial femoral artery (mid): 86 cm/s, phasicity: Triphasic. Spectral broadening. Superficial femoral artery (distal): 137 cm/s, phasicity: Triphasic. Spectral broadening. Popliteal artery: 75 cm/s, phasicity: Biphasic. Spectral broadening. Posterior tibial artery: 55 cm/s, phasicity: Biphasic. Spectral broadening. Peroneal artery: 35 cm/s, phasicity: Biphasic. Spectral broadening. Anterior tibial artery: 48 cm/s, phasicity: Biphasic. Spectral broadening. Dorsalis pedis artery: 47 cm/s, phasicity:Biphasic. Spectral broadening. LEFT LEG: Common femoral artery: 82 cm/s, phasicity: Monophasic. Profunda femoris artery: 86 cm/s, phasicity: Biphasic. Spectral broadening. Superficial femoral artery (proximal): 125 cm/s, phasicity: Biphasic. Spectral broadening. Superficial femoral artery (mid): 85 cm/s, phasicity: Triphasic. Spectral broadening. Superficial femoral artery (distal): 98 cm/s, phasicity: Triphasic. Spectral broadening. Popliteal artery: 66 cm/s, phasicity: Triphasic. Spectral broadening. Posterior tibial artery: 71 cm/s, phasicity: Triphasic. Spectral broadening. Peroneal artery: 23 cm/s, phasicity: Biphasic. Spectral broadening. Anterior tibial artery: 46 cm/s, phasicity: Triphasic. Spectral broadening. Dorsalis pedis artery: 45 cm/s, phasicity: Triphasic. Spectral broadening. BRACHIAL PRESSURES: Right: 120 Left: 118 ANKLE PRESSURES: Right: PT 114, DP 105 Left: PT 97, DP 101 ANKLE-BRACHIAL INDEX: Right: 0.95. Left: 0.84. ANKLE PVR WAVEFORMS: Right: Normal Left: Normal US/US arterial duplex BI w/ KALINA IMPRESSION: Right leg: Patent [id number] femoral-femoral bypass graft. Mild to moderate inflow disease throughout the interrogated arteries. Left leg: Mild to moderate inflow disease throughout the interrogated arteries. Overall stable since prior exam. KALINA Reference: - >1.4 = calcified vessels - 0.9 - 1.4 = normal - no significant arterial disease - 0.7 - 0.89 = mild peripheral arterial disease - 0.51 - 0.69 = moderate peripheral arterial disease - 0.50 = severe peripheral arterial disease - < .30 = critical arterial disease Electronically signed by: Humberto Radford MD 08/26/2025 08:13 AM [facility]
== END 2025-08-25 14:23 | disposition home or self-care (01) ==
LOC: HO.US 14:22
PROVIDERS: PCP Internal Medicine; Visit Provider Surgery Vascular Surgery
DX: I65.23 Occlusion and stenosis of bilateral carotid arteries (principal); I73.9 Peripheral vascular disease, unspecified
CPT/HCPCS: 93880; 93922; 93925

== ENCOUNTER → 2025-08-25 14:26 | Outpatient (BNV) | payer MEDICARE, MEDICAID, SELFPAY | PROVIDERS: PCP Internal Medicine; Visit Provider Radiology Diagnostic Radiology | DX: I65.23 Occlusion and stenosis of bilateral carotid arteries (principal); I73.9 Peripheral vascular disease, unspecified | CPT/HCPCS: 93880; 93922; 93925 ==